=== PATIENT | female | born 1970 | race Caucasian/White ===

== ENCOUNTER 2020-10-26 22:18 | Emergency (ER) | payer SELFPAY ==
[2020-10-26 22:28] VITALS: BP 154/87; PULSE 102; RESP 16; TEMP 36.2; O2SAT 98; BMI 28.7
--- NOTE | 2020-10-26 23:00 | ED.URI ---
HPI - URI/Sore Throat General Chief Complaint: Upper Respiratory Symptoms Stated Complaint: COUGH Time Seen by Provider: 10/26/20 22:55 Source: patient Mode of arrival: ambulatory Limitations: no limitations History of Present Illness HPI Narrative: Patient comes emergency room complaining frequent asthma exacerbations. Patient states a few days ago she ran out of her albuterol nebulization treatments. Patient has been using her inhaler beclamethasone. Patient states she has been having a dry cough for about a week. Patient states she gets weekly COVID tests, they have been negative. Patient requesting a prescription for Tessalon Perles Related Data Previous Rx's Medication Instructions Recorded albuterol sulfate 5 mg INHALATION Q6H PRN #30 ea 10/26/20 benzonatate [Tessalon Perles] 100 mg PO TID PRN #14 cap 10/26/20 prednisone 50 mg PO DAILY #4 tab 10/26/20 Allergies Allergy/AdvReac Type Severity Reaction Status Date / Time No Known Allergies Allergy Verified 10/26/20 22:27 Review of Systems Review of Systems: Constitutional : No Weight loss, No Fever, No Chills, No Night Sweats, No Fatigue, No Malaise ENT/Mouth : No Hearing loss, No Ear Pain, No Nasal Congestion, No Sinus Pain, No Hoarseness, No sore throat, No Rhinorrhea, No Swallowing Difficulty Eyes: No Eye Pain, No Swelling, No Redness, No Foreign Body, No Discharge, No Vision Changes Cardiovascular : No Chest Pain, No SOB, No Dyspnea on Exertion, No Orthopnea, No Edema, No Palpitations Respiratory : Complaining of dry cough, complaining of wheezing occasionally but more frequently than usual, No Smoke Exposure, No Dyspnea Gastrointestinal : No Nausea, No Vomiting, No Diarrhea, No Constipation, No abdominal Pain, No Hematochezia, No Melena Genitourinary : no irregular bleeding, No Dysuria, No Urinary Frequency, No Hematuria, No Urinary Incontinence, No Urgency, No Flank Pain, No Urinary Flow Changes, No Hesitancy Musculoskeletal : No joint pain, No Myalgias, No Joint Swelling Skin : No Skin Lesions, No rash Neuro : No Weakness, No Numbness, No Paresthesias, No Loss of Consciousness, No Dizziness, No Headache Psych : No Anxiety/Panic, No Depression, No SI/HI/AH/VH, No Social Issues, Heme/Lymph: No Bruising, No Bleeding,No Lymphadenopathy Endocrine : No Polyuria, No Polydipsia, No Temperature Intolerance PMF Past Medical History Medical History Asthma Hypothyroid Physical Exam Vital Signs: Vital Signs: Last Vital Signs Temp 97.1 F 10/26/20 22:28 Pulse 102 H 10/26/20 22:28 Resp 16 10/26/20 22:28 BP 154/87 H 10/26/20 22:28 Pulse Ox 98 10/26/20 22:28 Body Mass Index 28.7 Appearance: Alert. Oriented X3. No acute distress. Eyes: Pupils equal, round and reactive to light. ENT: Pharynx normal. Neck: Normal inspection. Neck supple. No lymph nodes noted. No crepitus CVS: Normal heart rate and rhythm. Pulses normal. Normal S1 and S2 Respiratory: No respiratory distress. Breath sounds normal. No Wheezing. No rales Abdomen: Soft and nontender. No rigidity. No distention. good BS x4 Skin: Skin warm and dry. Normal skin color. Normal skin turgor. Extremities: No lower extremity edema. No lower extremity edema. No Lacerations. No Rash Neuro: Oriented X 3. No motor deficit. No sensory deficit. Moving all extermities. No slurred speech. Course Course Course Narrative: At this time, patient is not wheezing, states she used her Ventolin inhaler prior to arrival. Patient has no respiratory distress. Patient given 1 dose of prednisone and Tessalon Perles, prescription sent to her pharmacy. Discharge Plan Discharge Clinical Impression: Asthma Qualifiers: Asthma severity: unspecified severity Asthma persistence: unspecified Asthma complication type: unspecified Qualified Code(s): J45.909 - Unspecified asthma, uncomplicated Patient Disposition: Home, Self-Care Instructions: Asthma (ED) Additional Instructions: Please follow-up with your primary care physician tomorrow. If you have any worsening or new symptoms, please return to the emergency room or call 911 Prescriptions: New benzonatate [Tessalon Perles] 100 mg capsule 100 mg PO TID PRN (Reason: cough) Qty: 14 RF: 0 prednisone 50 mg tablet 50 mg PO DAILY Qty: 4 RF: 0 albuterol sulfate 2.5 mg/0.5 mL solution for nebulization 5 mg inhalation Q6H PRN (Reason: shortness of breath or wheezing) Qty: 30 RF: 0
[2020-10-26] MEDS: predniSONE 20 MG TABLET 60 MG PO (23:18)
[2020-10-26] MEDS: Benzonatate 100 MG CAPSULE PO (23:18)
== END 2020-10-26 23:33 | disposition home or self-care (01) ==
LOC: HO.ED 23:11
PROVIDERS: Emergency Provider Emergency Medicine
DX: J45.909 Unspecified asthma, uncomplicated (principal); Z79.899 Other long term (current) drug therapy
CPT/HCPCS: 99283

== ENCOUNTER 2021-08-22 01:52 | Emergency (ER) | payer OTHER, SELFPAY ==
--- NOTE | ~2021-08-22 | XR_ITS ---
EXAMINATION: XR CHEST CLINICAL INFORMATION: Cough COMPARISON: 10/07/2019 TECHNIQUE: Frontal view of the chest was obtained. FINDINGS: The lungs are well expanded. There is no focal consolidation, edema, or effusion. No pneumothorax. The cardiomediastinal silhouette is within normal limits. No acute osseous abnormality. XR/XR chest 1V IMPRESSION: Clear lungs.
[2021-08-22 01:59] VITALS: BP 166/99; PULSE 96; RESP 16; TEMP 36.6; O2SAT 98; BMI 29.7
[2021-08-22 02:17] LABS: COVID-19 Test Negative (Negative)
[2021-08-22 04:23] VITALS: BP 139/80; PULSE 73; RESP 16; TEMP 36.6; O2SAT 95
--- NOTE | 2021-08-22 05:23 | ED.ASTHMA ---
HPI - Asthma General Chief Complaint: Upper Respiratory Symptoms Stated Complaint: cough Time Seen by Provider: 08/22/21 05:15 Source: patient Mode of arrival: ambulatory History of Present Illness HPI Narrative: This is a 50-year-old female who has a history of asthma and presents with a dry cough for 3 days and stating that her nebulized treatment does not seem to be working and she typically experiences exacerbations around this time of the year. Otherwise, she denies any fever, chills, nausea, vomiting, abdominal pain or urinary pain/burning/frequency. Related Data Previous Rx's Medication Instructions Recorded albuterol sulfate 2.5 mg/0.5 mL 5 mg INHALATION Q6H PRN #30 ea 10/26/20 solution for nebulization benzonatate 100 mg capsule 100 mg PO TID PRN #14 cap 10/26/20 (Delmis Marshall) prednisone 50 mg tablet 50 mg PO DAILY #4 tab 10/26/20 prednisone 50 mg tablet 50 mg PO DAILY 4 Days #4 tab 08/22/21 Allergies Allergy/AdvReac Type Severity Reaction Status Date / Time No Known Allergies Allergy Verified 08/22/21 01:59 Review of Systems Review of Systems: Pertinent positives and negatives as stated in HPI 10 point review of systems is otherwise negative. PMFSH Past Medical History Source: nursing notes reviewed Medical History Asthma Hypothyroid Social History Social History Advance Directives: No Advance Directives Information Provided: No Patient : No Physical Exam Vital Signs: Vital Signs: Last Vital Signs Temp 98 F 08/22/21 04:23 Pulse 73 08/22/21 04:23 Resp 16 08/22/21 04:23 BP 139/80 08/22/21 04:23 Pulse Ox 95 08/22/21 04:23 BMI result Body Mass Index 29.7 VITAL SIGNS: Reviewed. GENERAL: Well developed, well nourished, in no acute distress. HEAD: Normocephalic/atraumatic EYES: PERRLA, EOMI EARS: Ext canals without abnormality, TMs non-bulging and non-erythematous NOSE: Nares patent bilateral OROPHARYNX: no oral lesions noted, posterior pharynx clear LUNGS: Mild decrease in breath sounds but otherwise normal with minimal expiratory wheeze and no associated tachypnea or increased work of breathing. SpO2<> CARDIOVASCULAR: Regular rate and rhythm without noted murmurs, no JVD or lower extremity edema. ABDOMEN: Soft, non-tender, non-distended with bowel sounds. NEUROLOGIC: Alert and oriented x 4. Course Course Course Narrative: 50-year-old female with history and clinical presentation consistent with mild asthma exacerbation. Review of COVID-19 testing demonstrates negativity and chest x-rays without acute findings. Patient received initial prednisone as well as albuterol treatment and on re-evaluation reports that she feels much improved. MDM - Asthma Lab Data Labs: Lab Results 08/22/21 Range/Units 01:57 COVID-19 (EVAN) Negative (Negative) COVID-19 Clin Com See Note Discharge Plan Discharge Clinical Impression: Asthma Patient Disposition: Home, Self-Care Instructions: Asthma (ED) Additional Instructions: Resume all home medications as prescribed. Follow-up with your primary care provider. Return to the ER for worsening symptoms. Prescriptions: New prednisone 50 mg tablet 50 mg PO DAILY 4 Days Qty: 4 0RF No Action benzonatate [Tessalon Perles] 100 mg capsule 100 mg PO TID PRN (Reason: cough) Qty: 14 0RF prednisone 50 mg tablet 50 mg PO DAILY Qty: 4 0RF albuterol sulfate 2.5 mg/0.5 mL solution for nebulization 5 mg inhalation Q6H PRN (Reason: shortness of breath or wheezing) Qty: 30 0RF
[2021-08-22] MEDS: predniSONE 10 MG TABLET 50 MG PO (05:29)
[2021-08-22] MEDS: Albuterol Sulfate (0.083%) 2.5 MG/3 ML VIAL.NEB 5 MG INHALE (05:30)
[2021-08-22 06:12] VITALS: BP 148/78; PULSE 109; RESP 19; O2SAT 96
== END 2021-08-22 06:17 | disposition home or self-care (01) ==
PROVIDERS: Emergency Provider Student in an Organized Health Care Education/Training Program
DX: J45.909 Unspecified asthma, uncomplicated (principal); Z20.822 Contact with and (suspected) exposure to COVID-19
CPT/HCPCS: 71045; 87635; 99284

== ENCOUNTER 2021-09-06 15:45 | Emergency (ER) | payer OTHER, SELFPAY ==
--- NOTE | ~2021-09-06 | XR_ITS ---
EXAMINATION: XR CHEST CLINICAL INFORMATION: Left-sided pleuritic chest pain. COMPARISON: Chest radiograph dated from 08/22/2021. TECHNIQUE: 2 views of the chest were obtained. FINDINGS: No significant abnormality is noted involving the heart, lungs, mediastinum, bony thorax or soft tissues. XR/XR chest 2V IMPRESSION: Unremarkable examination.
--- NOTE | ~2021-09-06 | CT_ITS ---
EXAMINATION: CT ANGIOGRAM OF THE CHEST WITH AND WITHOUT CONTRAST (CT PULMONARY ANGIOGRAM FOR PE) CLINICAL INFORMATION: Reason for Exam Left-sided pleuritic chest pain, elevated D-dimer COMPARISON: Chest radiograph 09/06/2021 TECHNIQUE: Prior to contrast administration, noncontrast localization images were obtained. Subsequently, multidetector volumetric imaging was performed from the thoracic inlet to below the diaphragms following the administration of 61 mL Omnipaque 350 intravenous contrast. No contrast reaction reported Sagittal, coronal, and MIP oblique sagittal reformatted images were obtained on the CT workstation, uploaded to PACS, and reviewed. This CT examination was performed using dose optimization techniques as appropriate, variously including the following: *Automated exposure control *Adjustment of mA and/or kV according to patient size (this includes techniques or standardized protocols for targeted exams where dose is matched to indication/reason for exam; i.e. extremities or head) *Use of iterative reconstruction technique Total exam dose-length product 261 mGy-cm FINDINGS: QUALITY OF STUDY/CONTRAST BOLUS: Satisfactory. Severe motion artifact is present limiting diagnosis especially at the lung bases PULMONARY ARTERIES: No central or large segmental pulmonary emboli. THORACIC AORTA: No aneurysm or dissection. Evaluation of the aortic root is significantly limited by motion artifact. LUNG: No focal consolidation, nodules or masses. PLEURA: No pleural effusion or pneumothorax. MEDIASTINUM: Normal heart size. No pericardial effusion. No hilar or mediastinal lymphadenopathy. No evidence of septal bowing or right heart strain. CHEST WALL/AXILLA: No axillary or internal mammary lymphadenopathy. OSSEOUS STRUCTURES: No acute or suspicious osseous abnormality. UPPER ABDOMEN: Unremarkable. No reflux of contrast into the hepatic veins to suggest elevated right heart pressures. CT/CT angio chest PE protocol IMPRESSION: Limited study but no central or large segmental emboli are seen VTE: negative
[2021-09-06 15:59] VITALS: BP 155/75; PULSE 90; RESP 18; TEMP 36.8; O2SAT 98; BMI 28.3
--- NOTE | 2021-09-06 16:33 | ECG_ITS ---
Test Reason : CHEST PAIN Blood Pressure : / mmHG Vent. Rate : 094 BPM Atrial Rate : 094 BPM P-R Int : 150 ms QRS Dur : 084 ms QT Int : 380 ms P-R-T Axes : 061 023 034 degrees QTc Int : 475 ms Normal sinus rhythm Normal ECG No previous ECGs available Referred By: Carlos Blanchard Electronically Signed By:CARLITOS LOREDO MD
[2021-09-06 16:51] LABS: MANUAL DIFF FLAG NO
[2021-09-06 17:01] LABS: Basophils Percent Auto 0.2 % (0-2); Eosinophils Absolute Auto 0.3 X10*3/uL (0.0-0.4); Eosinophils Percent Auto 4.7 % (0-4); Hematocrit 38.8 % (37.0-47.0); Imm Gran Abs Auto 0.02 X10*3/uL (0.00-0.03); Imm Gran Pct Auto 0.3 % (0.0-0.4); Lymphocytes Absolute Auto 2.2 X10*3/uL (1.2-4.9); Lymphocytes Percent Auto 34.9 % (20-40); Mean Corpuscular HGB Conc 33.5 g/dl (31.0-35.0); Mean Corpuscular Hemoglobin 30.2 pg (27.0-33.0); Mean Platelet Volume 8.9 fL (9.4-12.3); Monocytes Absolute Auto 0.4 X10*3/uL (0.1-1.2); Monocytes Percent Auto 7.1 % (2-11); Neutrophils Absolute Auto 3.3 x10*3/uL (2.0-8.3); Neutrophils Percent Auto 52.8 % (45-73); Platelet Count 326 X10*3/uL (160-400); Red Blood Count 4.31 X10*6/uL (4.20-5.50); Red Cell Distribution Width 13.5 % (11.0-16.0); White Blood Count 6.2 X10*3/uL (4.8-10.8)
[2021-09-06 17:05] LABS: D Dimer High Sensitivity 241 NG/ML
[2021-09-06 17:13] LABS: Alanine Aminotransferase 13 U/L (0-31); Albumin Level 4.1 g/dL (3.5-5.0); Alkaline Phosphatase 75 U/L (39-117); Anion Gap 10 (12-20); Aspartate Amino Transferase 14 U/L (5-31); Bilirubin Total 0.5 mg/dL (0.0-1.0); Blood Urea Nitrogen 14 mg/dL (9-16); Calcium 9.1 mg/dL (8.4-10.2); Carbon Dioxide 27 mmol/L (22-29); Chloride 105 mmol/L (96-108); Creatinine Clr Calc Pharmacy 75.6; Estimated Glomerular Filt Rate > 60; Glucose Random 90 mg/dL (60-115); Sodium 138 mmol/L (135-145); Total Protein 7.2 g/dL (6.5-8.0)
[2021-09-06 17:19] LABS: Troponin-I High Sensitivity < 3.5 ng/L (<3.5-17.0)
[2021-09-06] MEDS: Ketorolac Tromethamine 15 MG/ML VIAL IVPUSH (17:24)
--- NOTE | 2021-09-06 17:54 | ED.GENADULT ---
HPI - General Adult General Chief complaint: Back Pain/Injury Stated complaint: light sided back pain Time Seen by Provider: 09/06/21 16:32 Source: patient Mode of arrival: ambulatory Limitations: no limitations History of Present Illness HPI narrative: 50-year-old female who presents emergency department for evaluation left anterior and posterior chest pain. 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 She states that yesterday while she was cleaning she had gradual onset of left posterior and left anterior chest pain. She describes the pain Came on gradually and is astabbing pain which is been intermittent, 10/10 at its worst. The pain is worse with breathing worse and with movement. She states that she does feel short of breath and has dyspnea on exertion. she does not recount any specific injury. The patient states that she was sick 1-2 weeks prior with asthma. She was seen in the emergency department and started on prednisone, and inhaler and Tessalon Perles. She states that her doctor extended her prednisone course. She denied fever, chills, rhinorrhea. She states that she does have a sore throat each she describes it as a raspy sensation. Patient has a cough which is intermittent and nonproductive. She denied abdominal pain, frequency, urgency, dysuria. She denied myalgias arthralgias. MD complaint: Chest pain Onset (ago): day(s) (2) Location: chest ( anterior and posterior) Radiation: non-radiation Severity: severe Severity scale (1-10): 10 Quality: stabbing and sharp Pain Consistency: intermittent Relieving factors: none Exacerbating factors: movement and other ( breathing) Associated symptoms: cough and other ( rhinorrhea) Treatments prior to arrival: none Related Data Previous Rx's Medication Instructions Recorded albuterol sulfate 2.5 mg/0.5 mL 5 mg INHALATION Q6H PRN #30 ea 10/26/20 solution for nebulization benzonatate 100 mg capsule 100 mg PO TID PRN #14 cap 10/26/20 (Tessalon Perles) prednisone 50 mg tablet 50 mg PO DAILY #4 tab 10/26/20 prednisone 50 mg tablet 50 mg PO DAILY 4 Days #4 tab 08/22/21 Allergies Allergy/AdvReac Type Severity Reaction Status Date / Time No Known Allergies Allergy Verified 09/06/21 15:59 Review of Systems Review of Systems: Yes all other systems are reviewed and are negative PMFSH Past Medical History [facility] Narrative: Past medical history: Asthma, hypothyroidism , IUD. Past surgical history none. social history: She denies tobacco use. She denies alcohol use. She denies drug use. Medical History Asthma Hypothyroid Social History Social History Advance Directives: No Advance Directives Information Provided: No Physical Exam ED Vital Signs: Vital Signs - 24 hr 09/06/21 15:59 Temperature 98.2 F Pulse Rate 90 Respiratory Rate 18 Blood Pressure 155/75 H Pulse Oximetry 98 BMI result Body Mass Index 28.3 Const Other: Awake, alert, female patient, very pleasant and cooperative, she does appear to be in [id number] distress secondary to her left-sided chest or back pain. [facility] Head: Yes normal to inspection, Yes normocephalic and Yes atraumatic Ears: external ears normal General nose exam: Normal external nose present Face and sinus: Yes normal facial exam Mouth: Normal oral and palatal mucosa present Throat: Yes posterior oropharynx normal Eyes General: appearance normal, both eyes and all related structures Pupils: Equal, round and reactive pupils present Neck Neck: Yes normal visual inspection, Yes no lymphadenopathy, Yes trachea midline and Yes supple Chest Other: Tenderness with palpation of her left anterior and posterior chest Chest palpation & inspection: normal inspection of the chest Resp Effort & Inspection: normal respiratory effort and able to speak in complete sentences Auscultation: clear to auscultation bilaterally Cardio Rate: regular rate Rhythm: regular rhythm Heart sounds: S1 normal heart sound present, S2 normal heart sound present and no murmurs GI Inspection: Yes normal to inspection Palpation (GI): Soft to palpation, nontender and no guarding Auscultation: normal bowel sounds General: Yes no CVA tenderness Back/Spine/Pelvis Back: no CVA tenderness Skin General skin exam: no rashes or lesions noted Neuro Cranial nerves: Yes CN's II-XII intact bilaterally and Yes Equal, round and reactive pupils present Cognition (Neuro): normal cognition Motor exam (neuro): 5/5 motor strength present throughout Extrem Other: negative Homans sign bilaterally, no calf tenderness or tenderness palpation of her thigh, lower extremities appear to be symmetric in size. General: Yes normal to inspection Psych Appearance: grossly normal Speech and movement: Normal speech and movement present Affect: normal affect Attitude: cooperative Thought process: Normal thought process present Thought content: Normal thought content present Course Course Course Narrative: 50-year-old female who presents emergency department for evaluation of pleuritic left-sided anterior posterior chest pain, the pain came on gradually yesterday while she was at work as a change management lead but does not recount any specific injury. She has associated shortness of breath and dyspnea on exertion. Initial vital signs revealed an elevated blood pressure of 155/75, O2 saturation was 98% on room air, although vital signs were unremarkable. Physical examination did reveal anterior and posterior chest wall tenderness. Given her age, the patient is PERC positive. I did order a CBC, CMP, troponin, EKG, D-dimer, chest x-ray. Patient's pain was treated with Toradol 15 mg IV. 1800 : Laboratory evaluation: CBC, CMP were normal. elevated D-dimer 241, troponin below detectable limits. Twelve EKG unremarkable. Chest x-ray unremarkable. Given her pleuritic chest pain, her age, and elevated D-dimer, I did order a CT pulmonary angiogram pulmonary embolism protocol. 1902: Patient's CT pulmonary angiogram was negative. Patient's presentation is consistent with costochondritis. I did discuss this with her. She was advised to take Tylenol and ibuprofen for pain. She was given a work note as well. She was discharged with printed and verbal instructions. Medical Decision Making Lab Data Lab results reviewed: Yes I reviewed the patient's lab results. Result diagrams: 09/06/21 16:42 09/06/21 16:42 Labs: Lab Results 09/06/21 09/06/21 09/06/21 Range/Units 16:42 16:42 16:42 WBC 6.2 (4.8-10.8) X10*3/uL RBC 4.31 (4.20-5.50) X10*6/uL Hgb 13.0 (12.0-16.0) g/dl Hct 38.8 (37.0-47.0) % MCV 90.0 (80.0-98.0) fL MCH 30.2 (27.0-33.0) pg MCHC 33.5 (31.0-35.0) g/dl RDW 13.5 (11.0-16.0) % Plt Count 326 (160-400) X10*3/uL MPV 8.9 L (9.4-12.3) fL Immature Gran % (Auto) 0.3 (0.0-0.4) % Neut % (Auto) 52.8 (45-73) % Lymph % (Auto) 34.9 (20-40) % Walton % (Auto) 7.1 (2-11) % Eos % (Auto) 4.7 H (0-4) % Baso % (Auto) 0.2 (0-2) % Lymph # (Auto) 2.2 (1.2-4.9) X10*3/uL Walton # (Auto) 0.4 (0.1-1.2) X10*3/uL Eos # (Auto) 0.3 (0.0-0.4) X10*3/uL Baso # (Auto) 0.0 (0.0-0.2) X10*3/uL Abs Immat Gran (auto) 0.02 (0.00-0.03) X10*3/uL Absolute Neuts (auto) 3.3 (2.0-8.3) x10*3/uL Absolute Nucleated RBC 0.000 (0.0-0.012) X10*3/uL Nucleated RBC % (auto) 0.0 (0.0-0.2) /100WBC D-Dimer High Sensitivty 241 NG/ML Sodium 138 (135-145) mmol/L Potassium 4.0 (3.3-5.1) mmol/L Chloride 105 (96-108) mmol/L Carbon Dioxide 27 (22-29) mmol/L Anion Gap 10 L (12-20) BUN 14 (9-16) mg/dL Creatinine 0.85 (0.5-1.4) mg/dL Estim Creat Clear Calc 75.6 Estimated GFR > 60 Random Glucose 90 (60-115) mg/dL Calcium 9.1 (8.4-10.2) mg/dL Total Bilirubin 0.5 (0.0-1.0) mg/dL AST 14 (5-31) U/L ALT 13 (0-31) U/L Alkaline Phosphatase 75 (39-117) U/L Troponin I High Sens (<3.5-17.0) ng/L Total Protein 7.2 (6.5-8.0) g/dL Albumin 4.1 (3.5-5.0) g/dL 09/06/21 Range/Units 16:42 WBC (4.8-10.8) X10*3/uL RBC (4.20-5.50) X10*6/uL Hgb (12.0-16.0) g/dl Hct (37.0-47.0) % MCV (80.0-98.0) fL MCH (27.0-33.0) pg MCHC (31.0-35.0) g/dl RDW (11.0-16.0) % Plt Count (160-400) X10*3/uL MPV (9.4-12.3) fL Immature Gran % (Auto) (0.0-0.4) % Neut % (Auto) (45-73) % Lymph % (Auto) (20-40) % Walton % (Auto) (2-11) % Eos % (Auto) (0-4) % Baso % (Auto) (0-2) % Lymph # (Auto) (1.2-4.9) X10*3/uL Walton # (Auto) (0.1-1.2) X10*3/uL Eos # (Auto) (0.0-0.4) X10*3/uL Baso # (Auto) (0.0-0.2) X10*3/uL Abs Immat Gran (auto) (0.00-0.03) X10*3/uL Absolute Neuts (auto) (2.0-8.3) x10*3/uL Absolute Nucleated RBC (0.0-0.012) X10*3/uL Nucleated RBC % (auto) (0.0-0.2) /100WBC D-Dimer High Sensitivty NG/ML Sodium (135-145) mmol/L Potassium (3.3-5.1) mmol/L Chloride (96-108) mmol/L Carbon Dioxide (22-29) mmol/L Anion Gap (12-20) BUN (9-16) mg/dL Creatinine (0.5-1.4) mg/dL Estim Creat Clear Calc Estimated GFR Random Glucose (60-115) mg/dL Calcium (8.4-10.2) mg/dL Total Bilirubin (0.0-1.0) mg/dL AST (5-31) U/L ALT (0-31) U/L Alkaline Phosphatase (39-117) U/L Troponin I High Sens < 3.5 (<3.5-17.0) ng/L Total Protein (6.5-8.0) g/dL Albumin (3.5-5.0) g/dL ECG Data Attestation: I personally reviewed and interpreted this ECG as follows: Interpretation: 1634: Normal sinus rhythm with a rate of 94, normal [place] interval QRS duration and QTC interval, no ST segment elevation, no ST segment depression, no PACs, no PVCs, no T-wave abnormalities. This is a normal EKG. Discharge Plan Discharge Clinical Impression: Acute costochondritis Patient Disposition: Home, Self-Care Instructions: Costochondritis (ED) Additional Instructions: Your blood work was unremarkable except for a slightly elevated D-dimer of 240. Your chest x-ray was normal. Your CT pulmonary angiogram was normal. There is no evidence of blood clots in your lungs causing your pain, this is very reassuring. Your symptoms are caused by inflammation of your chest joints (costochondritis). Take ibuprofen 200 mg pills, 3 pills every 6 hours as needed for pain. Take Tylenol (acetaminophen) 500 mg pills, 2 pills every 4 to 6 hours as needed for pain. Follow-up with your doctor in 2 days. Please return to the emergency department if your symptoms get worse or if you develop any symptoms that are concerning to you. Please see work note Prescriptions: No Action benzonatate [Tessalon Perles] 100 mg capsule 100 mg PO TID PRN (Reason: cough) Qty: 14 0RF prednisone 50 mg tablet 50 mg PO DAILY Qty: 4 0RF albuterol sulfate 2.5 mg/0.5 mL solution for nebulization 5 mg inhalation Q6H PRN (Reason: shortness of breath or wheezing) Qty: 30 0RF prednisone 50 mg tablet 50 mg PO DAILY 4 Days Qty: 4 0RF Stand Alone Forms: Work/School Release
[2021-09-06] MEDS: iohexoL 350 MG/ML 100 ML INFUS..BTL IV (18:20)
[2021-09-06 19:04] VITALS: BP 142/86; PULSE 79; RESP 16; TEMP 36.6; O2SAT 100
== END 2021-09-06 19:26 | disposition home or self-care (01) ==
PROVIDERS: Emergency Provider Emergency Medicine Emergency Medical Services
DX: M94.0 Chondrocostal junction syndrome [Tietze] (principal); J45.909 Unspecified asthma, uncomplicated
CPT/HCPCS: 36415; 71046; 71275; 80053; 84484; 85025; 85379; 93005; 96374; 99284; J1885; Q9967

== ENCOUNTER 2022-10-02 03:56 | Emergency (ER) | payer OTHER, SELFPAY ==
--- NOTE | ~2022-10-02 | US_ITS ---
EXAMINATION: US ABDOMEN LIMITED CLINICAL INFORMATION: Right upper quadrant pain. COMPARISON: None available. TECHNIQUE: Real-time imaging of the right upper quadrant abdominal viscera. FINDINGS: PANCREAS: Visualized portions unremarkable; tail obscured by interposed bowel gas. LIVER: Normal. The liver is normal in size. The liver contour is normal. There is diffuse increased liver parenchymal echogenicity, consistent with hepatic steatosis. No focal hepatic lesion. Focal fat sparing along the gallbladder fossa. There is no intrahepatic biliary duct dilatation seen. GALLBLADDER: Normal. The gallbladder is physiologically distended without evidence of stones, sludge, polyps, wall thickening or pericholecystic fluid. Sonographic Kelly sign is positive COMMON BILE DUCT: Normal in caliber measuring 0.2 cm in diameter. RIGHT KIDNEY: Normal. No hydronephrosis. No renal calculi or focal parenchymal lesions. The kidney measures 10.6 cm in maximum dimension. FREE FLUID: None. US/US abdomen limited IMPRESSION: * Hepatic steatosis. * No cholelithiasis. * A positive sonographic Kelly's sign is nonspecific in the absence of any imaging features of cholecystitis.
[2022-10-02 04:01] VITALS: BP 133/69; PULSE 130; RESP 16; TEMP 36.8; O2SAT 94; BMI 30.1
[2022-10-02 04:15] LABS: MANUAL DIFF FLAG NO
[2022-10-02 04:16] LABS: Basophils Percent Auto 0.1 % (0-2); Eosinophils Absolute Auto 0.2 X10*3/uL (0.0-0.4); Eosinophils Percent Auto 1.8 % (0-4); Hematocrit 41.2 % (37.0-47.0); Hemoglobin 13.8 g/dl (12.0-16.0); Imm Gran Abs Auto 0.03 X10*3/uL (0.00-0.03); Imm Gran Pct Auto 0.3 % (0.0-0.4); Lymphocytes Absolute Auto 0.8 X10*3/uL (1.2-4.9); Lymphocytes Percent Auto 7.1 % (20-40); Mean Corpuscular HGB Conc 33.5 g/dl (31.0-35.0); Mean Corpuscular Hemoglobin 29.2 pg (27.0-33.0); Mean Corpuscular Volume 87.1 fL (80.0-98.0); Monocytes Absolute Auto 0.3 X10*3/uL (0.1-1.2); Monocytes Percent Auto 2.9 % (2-11); Neutrophils Absolute Auto 9.6 x10*3/uL (2.0-8.3); Neutrophils Percent Auto 87.8 % (45-73); Platelet Count 339 X10*3/uL (160-400); Red Blood Count 4.73 X10*6/uL (4.20-5.50); White Blood Count 10.9 X10*3/uL (4.8-10.8)
[2022-10-02 04:47] LABS: Alanine Aminotransferase 18 U/L (0-31); Albumin Level 4.5 g/dL (3.5-5.0); Alkaline Phosphatase 110 U/L (39-117); Anion Gap 16 (12-20); Aspartate Amino Transferase 17 U/L (5-31); Bilirubin Direct 0.2 mg/dL (0.0-0.5); Bilirubin Total 0.8 mg/dL (0.0-1.0); Blood Urea Nitrogen 15 mg/dL (9-16); Calcium 9.5 mg/dL (8.4-10.2); Carbon Dioxide 26 mmol/L (22-29); Chloride 106 mmol/L (96-108); Creatinine Clr Calc Pharmacy 73.5; Estimated Glomerular Filt Rate > 60; Glucose Random 157 mg/dL (60-115); Lipase 30 U/L (8-78); Potassium 4.3 mmol/L (3.3-5.1); Sodium 144 mmol/L (135-145); Total Protein 7.4 g/dL (6.5-8.0)
--- NOTE | 2022-10-02 04:56 | ED.NAVMDI ---
HPI - Nausea/Vomiting/Diarrhea General Chief complaint: Nausea/Vomiting/Diarrhea Stated complaint: vomiting, stomach pain Time Seen by Provider: 10/02/22 04:56 Source: patient Mode of arrival: ambulatory Limitations: no limitations History of Present Illness HPI Narrative: Patient has significant past medical history been having nausea vomiting with upper abdominal pain since 23:00 and about 6 times no diarrhea no fever no chills no abdominal distention patient never had similar complaints in the past no fever or chills Related Data Previous Rx's Medication Instructions Recorded albuterol sulfate 2.5 mg/0.5 mL 5 mg inhalation Q6H PRN shortness 10/26/20 solution for nebulization of breath or wheezing #30 ea benzonatate 100 mg capsule 100 mg PO TID PRN cough #14 caps 10/26/20 (Delmis Marshall) prednisone 50 mg tablet 50 mg PO DAILY #4 tabs 10/26/20 prednisone 50 mg tablet 50 mg PO DAILY 4 days #4 tabs 08/22/21 ondansetron 4 mg disintegrating 4 mg PO Q6-8H PRN nausea and 10/02/22 tablet vomiting #10 tabs Allergies Allergy/AdvReac Type Severity Reaction Status Date / Time No Known Allergies Allergy Verified 10/02/22 04:01 Review of Systems Review of Systems: Yes all other systems are reviewed and are negative PMFSH Past Medical History Medical History Asthma Hypothyroid Social History Social History Smoked in Last 30 Days: No Use of substances other than those prescribed or required for medical reasons: No Advance Directives: No Advance Directives Information Provided: Yes Physical Exam Vital Signs: Vital Signs: Last Vital Signs Temp 97.2 F 10/02/22 06:15 Pulse 114 H 10/02/22 06:15 Resp 17 10/02/22 06:15 BP 120/70 10/02/22 06:15 Pulse Ox 95 10/02/22 06:15 O2 Del Method Room Air 10/02/22 04:01 BMI result Body Mass Index 30.1 Appearance: Alert. Oriented X3. No acute distress. Eyes: PERRLA, no pallor or icterus ENT: Pharynx normal. Oral Mucosa moist Neck: Normal inspection. Neck supple. CVS: Normal heart rate and rhythm. Pulses normal. Respiratory: No respiratory distress. Equal air entry bilateral, no wheezing/rales/rhonchi Abdomen: Soft , tender epigastric area and right upper quadrant with guarding no rebound tenderness Bowel sounds are present, no mass palpable, no CVA tenderness Skin: Skin warm and dry. Normal skin color. Normal skin turgor. Extremities: No lower extremity edema. No calf tenderness Neuro: Oriented X 3. No motor deficit. No sensory deficit.No cerebellar signs , cranial nerves II-XII intact Medications Administered Generic Name Dose Route Start Last Admin Trade Name Freq PRN Reason Stop Dose Admin Sodium Chloride 1,000 mls @ 999 mls/hr 10/02/22 06:18 10/02/22 06:21 Ns IV 10/02/22 07:18 999 mls/hr .Q1H1M ONE Administration Discontinued Medications Generic Name Dose Route Start Last Admin Trade Name Freq PRN Reason Stop Dose Admin Sodium Chloride 1,000 mls @ 999 mls/hr 10/02/22 05:04 10/02/22 06:21 Ns IV 10/02/22 06:04 Infused .Q1H1M ONE Infusion Morphine Sulfate 4 mg 10/02/22 05:04 10/02/22 05:13 Morphine Sulfate 4 Mg/Ml Cartridge IVPUSH 10/02/22 05:05 4 mg ONCE ONE Administration Protocol Ondansetron HCl 4 mg 10/02/22 05:04 10/02/22 05:13 Ondansetron Hcl 4 Mg/2 Ml Vial IVPUSH 10/02/22 05:05 4 mg ONCE ONE Administration Medical Decision Making Lab Data 10/02/22 04:06 10/02/22 04:06 Labs: Lab Results 10/02/22 10/02/22 10/02/22 Range/Units 04:06 04:06 06:21 WBC 10.9 H (4.8-10.8) X10*3/uL RBC 4.73 (4.20-5.50) X10*6/uL Hgb 13.8 (12.0-16.0) g/dl Hct 41.2 (37.0-47.0) % MCV 87.1 (80.0-98.0) fL MCH 29.2 (27.0-33.0) pg MCHC 33.5 (31.0-35.0) g/dl RDW 13.0 (11.0-16.0) % Plt Count 339 (160-400) X10*3/uL MPV 9.0 L (9.4-12.3) fL Immature Gran % (Auto) 0.3 (0.0-0.4) % Neut % (Auto) 87.8 H (45-73) % Lymph % (Auto) 7.1 L (20-40) % [place] % (Auto) 2.9 (2-11) % Eos % (Auto) 1.8 (0-4) % Baso % (Auto) 0.1 (0-2) % Lymph # (Auto) 0.8 L (1.2-4.9) X10*3/uL [place] # (Auto) 0.3 (0.1-1.2) X10*3/uL Eos # (Auto) 0.2 (0.0-0.4) X10*3/uL Baso # (Auto) 0.0 (0.0-0.2) X10*3/uL Abs Immat Gran (auto) 0.03 (0.00-0.03) X10*3/uL Absolute Neuts (auto) 9.6 H (2.0-8.3) x10*3/uL Absolute Nucleated RBC 0.000 (0.0-0.012) X10*3/uL Nucleated RBC % (auto) 0.0 (0.0-0.2) /100WBC Sodium 144 (135-145) mmol/L Potassium 4.3 (3.3-5.1) mmol/L Chloride 106 (96-108) mmol/L Carbon Dioxide 26 (22-29) mmol/L Anion Gap 16 (12-20) BUN 15 (9-16) mg/dL Creatinine 0.88 (0.5-1.4) mg/dL Estim Creat Clear Calc 73.5 Estimated GFR > 60 Random Glucose 157 H (60-115) mg/dL Calcium 9.5 (8.4-10.2) mg/dL Total Bilirubin 0.8 (0.0-1.0) mg/dL Direct Bilirubin 0.2 (0.0-0.5) mg/dL AST 17 (5-31) U/L ALT 18 (0-31) U/L Alkaline Phosphatase 110 (39-117) U/L Total Protein 7.4 (6.5-8.0) g/dL Albumin 4.5 (3.5-5.0) g/dL Lipase 30 (8-78) U/L Urine Color Yellow Urine Appearance Clear Urine pH 8.5 (5.0-9.0) Ur Specific [place] 1.015 (1.005-1.025) Urine Protein Trace (Neg-Trace) mg/dL Urine Glucose (UA) Negative (Negative) mg/dL Urine Ketones Negative (Negative) mg/dL Urine Blood Trace H (Negative) Urine Nitrite Negative (Negative) Ur Leukocyte Esterase Trace H (Negative) Urine RBC 6-10 H (0-2) /HPF Urine WBC 0-5 (0-5) /HPF Ur Squamous Epith Cells 0-2 (0-2) /HPF Urine Bacteria Trace (None Seen) Hyaline Casts 0-2 (0-2) /LPF Discharge Plan Discharge Clinical Impression: Gastroenteritis Patient Disposition: Home, Self-Care Instructions: Acute Nausea and Vomiting (ED) Additional Instructions: Drink plenty of fluids Nausea medication as prescribed Follow with PCP if not better Prescriptions: New ondansetron 4 mg tablet,disintegrating 4 mg PO Q6-8H PRN (Reason: nausea and vomiting) Qty: 10 0RF No Action benzonatate [Tessalon Perles] 100 mg capsule 100 mg PO TID PRN (Reason: cough) Qty: 14 0RF prednisone 50 mg tablet 50 mg PO DAILY Qty: 4 0RF albuterol sulfate 2.5 mg/0.5 mL solution for nebulization 5 mg inhalation Q6H PRN (Reason: shortness of breath or wheezing) Qty: 30 0RF prednisone 50 mg tablet 50 mg PO DAILY 4 Days Qty: 4 0RF
[2022-10-02] MEDS: 0.9 % Sodium Chloride 1,000 ML 999 ML IV ×2 (05:12→06:21)
[2022-10-02] MEDS: ondansetron HCL 4 MG/2 ML VIAL IVPUSH (05:13)
[2022-10-02] MEDS: Morphine Sulfate 4 MG/ML CARTRIDGE IVPUSH (05:13)
--- NOTE | 2022-10-02 05:15 | PC.NURSE ---
pt medicated for nausea and abd pain. Will continue to monitor.
[2022-10-02 05:49] VITALS: BP 124/83; PULSE 114; RESP 14; TEMP 37; O2SAT 97
--- NOTE | 2022-10-02 06:12 | PC.NURSE ---
ct scan, pt denies any pain.
[2022-10-02 06:15] VITALS: BP 120/70; PULSE 114; RESP 17; TEMP 36.2; O2SAT 95
--- NOTE | 2022-10-02 06:25 | PC.NURSE ---
provider aware of pt being tachycardia, second liter of fluids hung. Will continue to monitor.
[2022-10-02 06:26] LABS: Appearance Urine Clear; Color Urine Yellow; Glucose Urine UA Negative (Negative); Leukocyte Esterase Urine Trace (Negative); Nitrite Urine Negative (Negative); PH 8.5 (5.0-9.0); Specific Gravity - Urine 1.015 (1.005-1.025); UMIC TRIGGER UACC YES; Urine Blood Trace (Negative); Urine Ketones Negative (Negative); Urine Protein Trace mg/dL (Neg-Trace)
[2022-10-02 06:35] LABS: Bacteria Urine Trace (None Seen); Hyaline Casts Urine 0-2 /LPF (0-2); Squamous Epithelial Cell Urine 0-2 /HPF (0-2); WBC Urine 0-5 /HPF (0-5)
== END 2022-10-02 07:20 | disposition home or self-care (01) ==
PROVIDERS: Emergency Provider Internal Medicine
DX: K52.9 Noninfective gastroenteritis and colitis, unspecified (principal); R11.2 Nausea with vomiting, unspecified; R10.10 Upper abdominal pain, unspecified
CPT/HCPCS: 36415; 76705; 80053; 81001; 82248; 83690; 85025; 96361; 96374; 96375; 99284; 99285; J2270; J2405

== ENCOUNTER 2023-07-12 21:28 | Emergency (ER) | payer OTHER, SELFPAY ==
[2023-07-12 21:44] VITALS: BP 160/110; PULSE 104; RESP 18; TEMP 36.6; O2SAT 99; BMI 30.1
--- NOTE | 2023-07-12 22:36 | MHC.EDTECH ---
Patient brought into triage area,Covid,and Flu swabs collected and sent to lab.
[2023-07-12 22:58] LABS: COVID-19 Test Negative (Negative); IDNOW Serial# 6674DD1D
[2023-07-12 23:11] LABS: IDNOW Serial# 08D9AD1C; Influenza A Negative (Negative); Influenza B2 Negative (Negative)
--- NOTE | 2023-07-13 00:12 | ED.URI ---
HPI - URI/Sore Throat General Chief Complaint: Upper Respiratory Symptoms Stated Complaint: coughing/asthma/breathing diff Time Seen by Provider: 07/13/23 00:11 Source: patient Mode of arrival: ambulatory Limitations: no limitations History of Present Illness HPI Narrative: Patient with History of asthma been having more dry cough for last 1 week specially the nighttime using inhaler without much relief symptoms started after working at work using strong chemicals to clean. In the ER patient noticed to have dry cough no fever or chest pain Related Data Previous Rx's Medication Instructions Recorded albuterol sulfate 2.5 mg/0.5 mL 5 mg inhalation Q6H PRN shortness 10/26/20 solution for nebulization of breath or wheezing #30 ea benzonatate 100 mg capsule 100 mg PO TID PRN cough #14 caps 10/26/20 (Delmis Marshall) prednisone 50 mg tablet 50 mg PO DAILY #4 tabs 10/26/20 prednisone 50 mg tablet 50 mg PO DAILY 4 days #4 tabs 08/22/21 ondansetron 4 mg disintegrating 4 mg PO Q6-8H PRN nausea and 10/02/22 tablet vomiting #10 tabs albuterol sulfate 2.5 mg/3 mL 2.5 mg (3 mL) inhalation Q4-6H PRN 07/13/23 (0.083 %) solution for nebulization shortness of breath or wheezing #90 mL albuterol sulfate 90 mcg/actuation 2 puff inhalation Q4-6H PRN 07/13/23 aerosol inhaler (ProAir HFA) shortness of breath or wheezing #8.5 grams benzonatate 200 mg capsule 200 mg PO TID PRN cough #30 caps 07/13/23 prednisone 20 mg tablet 40 mg (2 x 20 mg) PO DAILY #10 tabs 07/13/23 Allergies Allergy/AdvReac Type Severity Reaction Status Date / Time No Known Allergies Allergy Verified 07/12/23 21:43 Review of Systems Review of Systems: Yes all other systems are reviewed and are negative PMFSH Past Medical History Onset Date is defined in the Problem List Problems that require an onset date and time if occurred within 24 hrs of arrival to the ED Aortic Dissection and Rupture; Neurologic impairment; Cardiopulmonary Arrest; Endotracheal Intubation; Insertion or Replacement of Mechanical Circulatory Assist Device Medical History Hypothyroid Asthma Social History Social History Advance Directives: No Advance Directives Information Provided: No Physical Exam Vital Signs: Vital Signs: Last Vital Signs Temp 97.8 F 07/12/23 21:44 Pulse 96 07/13/23 01:07 Resp 18 07/13/23 01:07 BP 148/60 H 07/13/23 01:07 Pulse Ox 99 07/13/23 01:07 O2 Del Method Room Air 07/13/23 01:07 BMI result Body Mass Index 30.1 Appearance: Alert. Oriented X3. No acute distress. Coughing frequently ENT: Pharynx normal. Oral Mucosa moist Neck: Normal inspection. Neck supple. CVS: Normal heart rate and rhythm. Pulses normal. Respiratory: No respiratory distress. Equal air entry bilateral, prolonged expiration Abdomen: Soft and nontender. Bowel sounds are present, Skin: Skin warm and dry. Normal skin color. Normal skin turgor. Neuro: Oriented X 3. Medications Administered Discontinued Medications Generic Name Dose Route Start Last Admin Trade Name Freq PRN Reason Stop Dose Admin Albuterol Sulfate 4 puff 07/13/23 00:30 07/13/23 01:00 Albuterol Sulfate 90 Mcg 8 Gm Inhaler INHALE 07/13/23 00:31 4 puff ONCE ONE Administration Benzonatate 200 mg 07/13/23 00:30 07/13/23 01:00 Benzonatate 100 Mg Capsule PO 07/13/23 00:31 200 mg ONCE ONE Administration Dexamethasone 10 mg 07/13/23 00:30 07/13/23 01:00 Dexamethasone 2 Mg Tablet PO 07/13/23 00:31 10 mg ONCE ONE Administration Medical Decision Making Medical Decision Making MDM Narrative: Patient has asthmatic bronchitis was given prednisone and inhaler Lab Data MDM Lab Attestation statement: I reviewed the patient's lab results. Labs: Lab Results 07/12/23 Range/Units 22:35 COVID-19 (EVAN) Negative (Negative) COVID-19 Clin Com See Note Influenza Type A (JANKI) Negative (Negative) Influenza Type B (JANKI) Negative (Negative) Influenza A & B Note See Note Discharge Plan Discharge Clinical Impression: Asthmatic bronchitis Patient Disposition: Home, Self-Care Instructions: Asthma (ED) Additional Instructions: Avoid strong chemicals exposure wear the mask Take medication as prescribed use nebulizer/inhaler as needed Follow with PCP if not better Prescriptions: New albuterol sulfate [ProAir HFA] 90 mcg/actuation HFA aerosol inhaler 2 puff inhalation Q4-6H PRN (Reason: shortness of breath or wheezing) Qty: 8.5 0RF albuterol sulfate 2.5 mg /3 mL (0.083 %) solution for nebulization 2.5 mg inhalation Q4-6H PRN (Reason: shortness of breath or wheezing) Qty: 90 0RF benzonatate 200 mg capsule 200 mg PO TID PRN (Reason: cough) Qty: 30 0RF prednisone 20 mg tablet 40 mg PO DAILY Qty: 10 0RF No Action benzonatate [Tessalon Perles] 100 mg capsule 100 mg PO TID PRN (Reason: cough) Qty: 14 0RF prednisone 50 mg tablet 50 mg PO DAILY Qty: 4 0RF albuterol sulfate 2.5 mg/0.5 mL solution for nebulization 5 mg inhalation Q6H PRN (Reason: shortness of breath or wheezing) Qty: 30 0RF prednisone 50 mg tablet 50 mg PO DAILY 4 Days Qty: 4 0RF ondansetron 4 mg tablet,disintegrating 4 mg PO Q6-8H PRN (Reason: nausea and vomiting) Qty: 10 0RF Interventions: ED Discharge Assessment Last Done: 07/13/23 01:08 Discharge Date/Time: 07/13/23 01:08
[2023-07-13] MEDS: Albuterol Sulfate 90 MCG 8 GM INHALER 4 PUFF INHALE (01:00)
[2023-07-13] MEDS: Benzonatate 100 MG CAPSULE 200 MG PO (01:00)
[2023-07-13] MEDS: dexAMETHasone 2 MG TABLET 10 MG PO (01:00)
[2023-07-13 01:07] VITALS: BP 148/60; PULSE 96; RESP 18; O2SAT 99
== END 2023-07-13 01:08 | disposition home or self-care (01) ==
PROVIDERS: Emergency Provider Internal Medicine
DX: J45.998 Other asthma (principal); Z11.52 Encounter for screening for COVID-19
CPT/HCPCS: 87502; 87635; 99284; J8540

== ENCOUNTER 2023-11-04 23:16 | Emergency (ER) | payer OTHER, SELFPAY ==
--- NOTE | ~2023-11-04 | XR_ITS ---
EXAMINATION: XR CHEST CLINICAL INFORMATION: Cough, congestion. COMPARISON: Chest radiograph 09/06/2021. CTA chest 09/06/2021. TECHNIQUE: 2 views of the chest were obtained. FINDINGS: Normal appearance of the cardiomediastinal silhouette. No focal airspace opacities, pleural effusion or pneumothorax. No pulmonary edema. Mild thoracic spondylosis. No acute osseous findings. Visualized upper abdomen is within normal limits. XR/XR chest 2V IMPRESSION: No acute cardiopulmonary findings.
[2023-11-04 23:37] VITALS: BP 153/87; PULSE 112; RESP 18; TEMP 36.6; O2SAT 97; BMI 30.6
[2023-11-05 01:12] LABS: Influenza A PCR NEGATIVE (Negative); Influenza B PCR NEGATIVE (Negative); Resp Syncy Virus RNA Qual PCR NEGATIVE (Negative); SARS COV2 PCR INHOUSE NEGATIVE (Negative)
[2023-11-05 04:00] VITALS: BP 138/84; PULSE 90; RESP 16; TEMP 36.6; O2SAT 97
--- NOTE | 2023-11-05 04:14 | ED_ITS ---
HPI - Asthma General Chief Complaint: Upper Respiratory Symptoms Stated Complaint: coughing Time Seen by Provider: 11/05/23 03:49 Source: patient Mode of arrival: ambulatory History of Present Illness HPI Narrative: 53-year-old female with history of asthma states she is she has had a dry cough that has now caused her to have left-sided chest wall pain. She otherwise denies any fevers or chills. Related Data Previous Rx's ?Medication ?Instructions ?Recorded albuterol sulfate 2.5 mg/0.5 mL 5 mg inhalation Q6H PRN shortness 10/26/20 solution for nebulization of breath or wheezing #30 ea benzonatate 100 mg capsule 100 mg PO TID PRN cough #14 caps 10/26/20 (Delmis Marshall) prednisone 50 mg tablet 50 mg PO DAILY #4 tabs 10/26/20 prednisone 50 mg tablet 50 mg PO DAILY 4 days #4 tabs 08/22/21 ondansetron 4 mg disintegrating 4 mg PO Q6-8H PRN nausea and 10/02/22 tablet vomiting #10 tabs albuterol sulfate 2.5 mg/3 mL 2.5 mg (3 mL) inhalation Q4-6H PRN 07/13/23 (0.083 %) solution for nebulization shortness of breath or wheezing #90 mL albuterol sulfate 90 mcg/actuation 2 puff inhalation Q4-6H PRN 07/13/23 aerosol inhaler (ProAir HFA) shortness of breath or wheezing #8.5 grams benzonatate 200 mg capsule 200 mg PO TID PRN cough #30 caps 07/13/23 prednisone 20 mg tablet 40 mg (2 x 20 mg) PO DAILY #10 tabs 07/13/23 prednisone 50 mg tablet 50 mg PO DAILY 4 days #4 tabs 11/05/23 Allergies Allergy/AdvReac Type Severity Reaction Status Date / Time No Known Allergies Allergy Verified 11/04/23 23:39 Review of Systems Review of Systems: Pertinent positives and negatives as stated in HPI COUNT INCLUDES THE [facility] Past Medical History Source: nursing notes reviewed Medical History Hypothyroid Asthma Social History Social History Advance Directives: No Advance Directives Information Provided: Yes Do you have a plan to hurt others: No Plan Physical Exam Vital Signs: Vital Signs: Last Vital Signs Temp 97.9 F 11/04/23 23:37 Pulse 112 H 11/04/23 23:37 Resp 18 11/04/23 23:37 BP 153/87 H 11/04/23 23:37 Pulse Ox 97 11/04/23 23:37 O2 Del Method Room Air 11/04/23 23:37 BMI result Body Mass Index 30.6 VITAL SIGNS: Reviewed. GENERAL: Well developed, well nourished, in no acute distress. HEAD: Normocephalic/atraumatic EYES: PERRLA, EOMI EARS: Ext canals without abnormality, TMs non-bulging and non-erythematous NOSE: Nares patent bilateral OROPHARYNX: no oral lesions noted, posterior pharynx clear and non-erythematous without noted tonsillar enlargement/erythema/exudates NECK: Supple, no adenopathy LUNGS: Normal breath sounds. No adventitious sounds or accessory muscle use. SpO2<97> CARDIOVASCULAR: Regular rate and rhythm without noted murmurs ABDOMEN: Soft, non-tender, non-distended with bowel sounds. MUSCULOSKELETAL: No tenderness, deformities, or effusions noted on gross inspection. EXTREMITIES: No cyanosis, clubbing or edema. SKIN: Inspection of the skin reveals no rashes NEUROLOGIC: Alert and oriented x 4. Strength and sensation to light touch were grossly intact x 4. Medical Decision Making Medical Decision Making [facility] Narrative: 53-year-old female with history and clinical presentation, DDX: Viral illness, asthma, pneumonia felt to be less likely. Reviewed all investigations and viral testing is negative for influenza/RSV/COVID-19 and chest x-ray does not demonstrate any infiltrate or venous congestion. My interpretation is this is a demonstration of cough variant asthma in addition to likely seasonal allergies and patient will be started on a short course of steroids. She has not hypoxic/tachypneic and did not require acute intervention for her asthma. She received initial dose of prednisone here in the emergency room. Differential Diagnosis Differential Diagnoses: The differential diagnosis associated with the presentation includes Please see the discussion above Admission/Observation Consideration of admission/observation: Escalation of care including admission/observation considered Please see the discussion above Lab Data [facility] Lab Attestation statement: I reviewed the patient's lab results. Please see the discussion above Labs: Lab Results 11/04/23 Range/Units 23:48 Influenza Type A (PCR) NEGATIVE (Negative) Influenza Type B (PCR) NEGATIVE (Negative) RSV RNA Qual (PCR) NEGATIVE (Negative) SARS-CoV-2 RNA (RT-PCR) NEGATIVE (Negative) Radiology Impression Discussion of test interpretation with radiology: I have reviewed the radiologist's reading. Radiologist Impression: Please see the discussions above External Record Review External record reviewed: Outpatient record and Prior outpatient labs Critical Care Time Critical Care Time Critical Care Time: Yes Total Critical Care Time: 30 Attestation: I personally attest to this time spent taking care of the patient. Discharge Plan Discharge Clinical Impression: Cough variant asthma Patient Disposition: Home, Self-Care Instructions: Asthma (ED) Additional Instructions: Follow-up with your primary care doctor Prescriptions: New prednisone 50 mg tablet 50 mg PO DAILY 4 Days Qty: 4 0RF No Action benzonatate [Tessalon Perles] 100 mg capsule 100 mg PO TID PRN (Reason: cough) Qty: 14 0RF prednisone 50 mg tablet 50 mg PO DAILY Qty: 4 0RF albuterol sulfate 2.5 mg/0.5 mL solution for nebulization 5 mg inhalation Q6H PRN (Reason: shortness of breath or wheezing) Qty: 30 0RF prednisone 50 mg tablet 50 mg PO DAILY 4 Days Qty: 4 0RF ondansetron 4 mg tablet,disintegrating 4 mg PO Q6-8H PRN (Reason: nausea and vomiting) Qty: 10 0RF albuterol sulfate [ProAir HFA] 90 mcg/actuation HFA aerosol inhaler 2 puff inhalation Q4-6H PRN (Reason: shortness of breath or wheezing) Qty: 8.5 0RF albuterol sulfate 2.5 mg /3 mL (0.083 %) solution for nebulization 2.5 mg inhalation Q4-6H PRN (Reason: shortness of breath or wheezing) Qty: 90 0RF benzonatate 200 mg capsule 200 mg PO TID PRN (Reason: cough) Qty: 30 0RF prednisone 20 mg tablet 40 mg PO DAILY Qty: 10 0RF Print Language: [place]
[2023-11-05] MEDS: predniSONE 10 MG TABLET 50 MG PO (04:42)
[2023-11-05 04:47] VITALS: BP 138/84; PULSE 90; RESP 16; TEMP 36.6; O2SAT 97
== END 2023-11-05 04:49 | disposition home or self-care (01) ==
PROVIDERS: Emergency Provider Student in an Organized Health Care Education/Training Program
DX: R05.9 Cough, unspecified (principal); J45.909 Unspecified asthma, uncomplicated; R07.89 Other chest pain; Z03.818 Encounter for observation for suspected exposure to other biological agents ruled out
CPT/HCPCS: 0241U; 71046; 99283; 99284

== ENCOUNTER 2023-11-26 22:08 | Emergency (ER) | payer OTHER, SELFPAY ==
[2023-11-26 22:13] VITALS: BP 131/77; PULSE 93; RESP 18; TEMP 36.3; O2SAT 98; BMI 30.6
[2023-11-26 22:43] LABS: IDNOW Serial# 9DB6401D; Influenza A Negative (Negative); Influenza B2 Negative (Negative)
[2023-11-26 22:44] LABS: IDNOW Serial# 58CA691E
[2023-11-26 22:45] LABS: COVID-19 Test Negative (Negative)
--- NOTE | 2023-11-26 23:15 | ED_ITS ---
HPI - General Adult General Chief complaint: Upper Respiratory Symptoms Stated complaint: persistent dry cough Time Seen by Provider: 11/26/23 23:07 Source: patient, RN notes reviewed and old records reviewed Mode of arrival: ambulatory Limitations: no limitations History of Present Illness ED Provider: Oleg SAMPSON narrative: 53-year-old female with past medical history significant for asthma presents for evaluation of a dry cough Patient endorses a dry cough for the last 2 days. She states that the symptoms have been on and off for several months. She has a history of allergies and asthma Denies any fevers, chills, shortness of breath pain She reports using 2 nebulizer treatments prior to coming to the hospital today Denies any recent travel. No other complaints or concerns at this time Related Data Previous Rx's ?Medication ?Instructions ?Recorded albuterol sulfate 2.5 mg/0.5 mL 5 mg inhalation Q6H PRN shortness 10/26/20 solution for nebulization of breath or wheezing #30 ea benzonatate 100 mg capsule 100 mg PO TID PRN cough #14 caps 10/26/20 (Delmis Marshall) prednisone 50 mg tablet 50 mg PO DAILY #4 tabs 10/26/20 prednisone 50 mg tablet 50 mg PO DAILY 4 days #4 tabs 08/22/21 ondansetron 4 mg disintegrating 4 mg PO Q6-8H PRN nausea and 10/02/22 tablet vomiting #10 tabs albuterol sulfate 2.5 mg/3 mL 2.5 mg (3 mL) inhalation Q4-6H PRN 07/13/23 (0.083 %) solution for nebulization shortness of breath or wheezing #90 mL albuterol sulfate 90 mcg/actuation 2 puff inhalation Q4-6H PRN 07/13/23 aerosol inhaler (ProAir HFA) shortness of breath or wheezing #8.5 grams benzonatate 200 mg capsule 200 mg PO TID PRN cough #30 caps 07/13/23 prednisone 20 mg tablet 40 mg (2 x 20 mg) PO DAILY #10 tabs 07/13/23 prednisone 50 mg tablet 50 mg PO DAILY 4 days #4 tabs 11/05/23 benzonatate 200 mg capsule 200 mg PO TID PRN cough #20 caps 11/26/23 prednisone 20 mg tablet 40 mg (2 x 20 mg) PO DAILY #10 tabs 11/26/23 Allergies Allergy/AdvReac Type Severity Reaction Status Date / Time No Known Allergies Allergy Verified 11/26/23 22:14 Review of Systems Constitutional: Constitutional: Denies body ache(s), Denies chills and Denies headache(s) Eyes: Eyes: Denies blurry vision ENT: Denies headache(s) and Denies sore throat Cardiovascular: Cardiovascular: Denies chest pain Respiratory: Respiratory: Denies chest congestion, Reports cough, Denies hemoptysis and Denies excessive phlegm production Gastrointestinal: Gastrointestinal: Denies abdominal pain, Denies nausea and Denies vomiting Musculoskeletal: Musculoskeletal: Denies back pain Integumentary/Breasts: Skin/Breast: Denies rash Neurologic: Denies headache(s) Psychiatric: Psychiatric: Denies anxiety and Denies suicidal ideation [facility] Past Medical History Medical History Hypothyroid Asthma Social History Social History Alcohol intake: never Advance Directives: No Advance Directives Information Provided: No Do you have a plan to hurt others: No Plan Physical Exam ED Vital Signs: Vital Signs - 24 hr 11/26/23 22:13 Temperature 97.3 F Pulse Rate 93 Respiratory Rate 18 Blood Pressure 131/77 Pulse Oximetry 98 Oxygen Delivery Method Room Air BMI result Body Mass Index 30.6 Const General: healthy appearing, comfortable, no acute distress, alert and awake Nutritional Appearance: well nourished Orientation/consciousness: patient oriented x3 HENMT Head: Yes normocephalic and Yes atraumatic Throat: Yes posterior oropharynx normal Eyes Eyelids: Yes eyelids normal Conjunctivae: conjunctivae normal Sclerae: sclerae normal Corneas: corneas normal Pupils: Equal, round and reactive pupils present EOM: EOMs intact bilaterally Neck Neck: Yes full ROM Resp Effort & Inspection: normal respiratory effort, able to speak in complete sentences, no audible wheezes and not labored Auscultation: clear to auscultation bilaterally GI Inspection: No distended Palpation (GI): Soft to palpation, not firm, nontender, no guarding and not rigid Skin General skin exam: elasticity normal Neuro General: patient oriented x3 Cranial nerves: Yes Equal, round and reactive pupils present and Yes Bilaterally intact EOM present Cognition (Neuro): normal cognition Extrem Other: Moving all extremities well without any obvious deformities Medications Administered Discontinued Medications Generic Name Dose Route Start Last Admin Trade Name Freq PRN Reason Stop Dose Admin Benzonatate 200 mg 11/26/23 23:14 11/26/23 23:22 Benzonatate 100 Mg Capsule PO 11/26/23 23:15 200 mg ONCE ONE Administration Prednisone 40 mg 11/26/23 23:14 11/26/23 23:23 Prednisone 20 Mg Tablet PO 11/26/23 23:15 40 mg ONCE ONE Administration Medical Decision Making Medical Decision Making MDM Narrative: Past medical history significant for asthma presents for evaluation of a dry cough. She endorses a history of allergies as well but she takes Zyrtec daily. She states that her symptoms tend to be worse when she is at work because chemicals are used for cleaning that trigger her asthma. Her lungs are currently clear to auscultation, she has no fevers or hypoxia to warrant an present x-ray at this time. She has not on any JENNIFER inhibitors. She has no risk factors for PE. Will discharge her with prednisone and benzonatate for asthma and cough Differential Diagnosis Differential Diagnoses: The differential diagnosis associated with the presentation includes Asthma exacerbation Bronchitis Pneumonia Allergies Allergic rhinitis Acute cough Lab Data Labs: Lab Results 11/26/23 Range/Units 22:22 COVID-19 (EVAN) Negative (Negative) COVID-19 Clin Com See Note Influenza Type A (JANKI) Negative (Negative) Influenza Type B (JANKI) Negative (Negative) Influenza A & B Note See Note Discharge Plan Discharge Clinical Impression: Asthma, Acute cough Patient Disposition: Home, Self-Care Instructions: Asthma (ED) Additional Instructions: You tested negative for the flu, COVID, RSV. Your lungs are clear to auscultation. Use benzonatate/Tessalon Perles as needed for cough. Take prednisone 40 mg daily for the next 5 days Follow-up with your primary doctor Prescriptions: New benzonatate 200 mg capsule 200 mg PO TID PRN (Reason: cough) Qty: 20 0RF prednisone 20 mg tablet 40 mg PO DAILY Qty: 10 0RF No Action benzonatate [Tessalon Perles] 100 mg capsule 100 mg PO TID PRN (Reason: cough) Qty: 14 0RF prednisone 50 mg tablet 50 mg PO DAILY Qty: 4 0RF albuterol sulfate 2.5 mg/0.5 mL solution for nebulization 5 mg inhalation Q6H PRN (Reason: shortness of breath or wheezing) Qty: 30 0RF prednisone 50 mg tablet 50 mg PO DAILY 4 Days Qty: 4 0RF ondansetron 4 mg tablet,disintegrating 4 mg PO Q6-8H PRN (Reason: nausea and vomiting) Qty: 10 0RF albuterol sulfate [ProAir HFA] 90 mcg/actuation HFA aerosol inhaler 2 puff inhalation Q4-6H PRN (Reason: shortness of breath or wheezing) Qty: 8.5 0RF albuterol sulfate 2.5 mg /3 mL (0.083 %) solution for nebulization 2.5 mg inhalation Q4-6H PRN (Reason: shortness of breath or wheezing) Qty: 90 0RF benzonatate 200 mg capsule 200 mg PO TID PRN (Reason: cough) Qty: 30 0RF prednisone 20 mg tablet 40 mg PO DAILY Qty: 10 0RF prednisone 50 mg tablet 50 mg PO DAILY 4 Days Qty: 4 0RF Print Language: Maltese
[2023-11-26] MEDS: Benzonatate 100 MG CAPSULE 200 MG PO (23:22)
[2023-11-26] MEDS: predniSONE 20 MG TABLET 40 MG PO (23:23)
[2023-11-26 23:29] VITALS: BP 143/93; PULSE 86; RESP 18; TEMP 36.6; O2SAT 96
== END 2023-11-26 23:33 | disposition home or self-care (01) ==
PROVIDERS: Emergency Provider Emergency Medicine
DX: J45.909 Unspecified asthma, uncomplicated (principal); R05.9 Cough, unspecified; Z79.899 Other long term (current) drug therapy; Z03.818 Encounter for observation for suspected exposure to other biological agents ruled out
CPT/HCPCS: 87502; 87635; 99283; 99284

== ENCOUNTER 2024-04-21 06:58 | Emergency (ER) | payer OTHER, SELFPAY ==
--- NOTE | ~2024-04-21 | XR_ITS ---
EXAMINATION: XR CHEST CLINICAL INFORMATION: Cough and shortness of breath COMPARISON: Prior chest radiograph 11/04/2023 TECHNIQUE: 2 views of the chest were obtained. FINDINGS: Lungs clear. No pleural effusions. Heart and pulmonary vessels normal. XR/XR chest 2V IMPRESSION: No active disease. Electronically signed by: Avery Block MD 04/21/2024 09:30 AM EDT
[2024-04-21 07:00] VITALS: BP 148/69; PULSE 107; RESP 20; TEMP 36.7; O2SAT 98; BMI 30.7
[2024-04-21 07:24] VITALS: O2SAT 98
--- NOTE | 2024-04-21 07:29 | ED_ITS ---
HPI - URI/Sore Throat General Chief Complaint: Upper Respiratory Symptoms Stated Complaint: resp issues Time Seen by Provider: 04/21/24 07:13 Source: patient Mode of arrival: ambulatory Limitations: no limitations History of Present Illness ED Provider: KIMBERLY WAGNER PA-C HPI Narrative: 53 year old female with pmhx significant for asthma, seasonal allergies, and hypothyroid presents to the ED today for evaluation of sore throat, bilateral ear pain, dry cough, myalgias times 24 hours. Denies sputum production. No drainage from the ears/ hearing changes. Admits her chest feels tight with coughing. Using her albuterol inhaler without relief. Last used this yesterday. States she works at [email or web address] with possible sick contacts. Denies fever/ chills, headache, dizziness, vision changes, dysphagia, wheezing, hemoptysis, SOB, chest pain, palpitations, N/V, abd pain. Denies recent travel or long car rides. Related Data Previous Rx's ?Medication ?Instructions ?Recorded albuterol sulfate 2.5 mg/0.5 mL 5 mg inhalation Q6H PRN shortness 10/26/20 solution for nebulization of breath or wheezing #30 ea benzonatate 100 mg capsule 100 mg PO TID PRN cough #14 caps 10/26/20 (Delmis Marshall) prednisone 50 mg tablet 50 mg PO DAILY #4 tabs 10/26/20 prednisone 50 mg tablet 50 mg PO DAILY 4 days #4 tabs 08/22/21 ondansetron 4 mg disintegrating 4 mg PO Q6-8H PRN nausea and 10/02/22 tablet vomiting #10 tabs albuterol sulfate 2.5 mg/3 mL 2.5 mg (3 mL) inhalation Q4-6H PRN 07/13/23 (0.083 %) solution for nebulization shortness of breath or wheezing #90 mL albuterol sulfate 90 mcg/actuation 2 puff inhalation Q4-6H PRN 07/13/23 aerosol inhaler (ProAir HFA) shortness of breath or wheezing #8.5 grams benzonatate 200 mg capsule 200 mg PO TID PRN cough #30 caps 07/13/23 prednisone 20 mg tablet 40 mg (2 x 20 mg) PO DAILY #10 tabs 07/13/23 prednisone 50 mg tablet 50 mg PO DAILY 4 days #4 tabs 11/05/23 benzonatate 200 mg capsule 200 mg PO TID PRN cough #20 caps 11/26/23 prednisone 20 mg tablet 40 mg (2 x 20 mg) PO DAILY #10 tabs 11/26/23 benzocaine 15 mg-menthol 2.6 mg 1 cesario mucous membrane Q2-4H PRN 04/21/24 lozenges (Cepacol Sore Throat sore throat #16 ea (benzocaine-menthol)) benzonatate 100 mg capsule 100 mg PO BID PRN cough #20 caps 04/21/24 prednisone 20 mg tablet 40 mg (2 x 20 mg) PO DAILY 4 days 04/21/24 #8 tabs Allergies Allergy/AdvReac Type Severity Reaction Status Date / Time chocolate Allergy Sneezing Verified 04/21/24 07:02 Review of Systems Review of Systems: Constitutional: No fever, chills, fatigue, night sweats, weight changes ENT/Mouth: No hearing loss, nasal congestion, sinus pain, rhinorrhea, +ear pain, +sore throat Eyes: No eye pain, swelling, redness, vision changes, discharge Cardio: No chest pain, palpitations, MERRITT, orthopnea, peripheral edema Pulm: No SOB, sputum, wheezing, dyspnea, hemoptysis, +cough GI: No nausea, vomiting, hematemesis, abdominal pain, diarrhea, constipation, hematochezia, melena : No irregular bleeding, dysuria, frequency, urgency, hesitancy, hematuria, flank pain, urinary flow changes, urinary incontinence or retention MSK: No back pain, neck pain, joint pain, +myalgias Skin: No lesions, rashes Neuro: No weakness, numbness, paresthesias, LOC, dizziness, headache Psych: No anxiety/panic, depression, SI/HI, AH/VH All other systems reviewed and are negative. [facility], [facility] Past Medical History Attestation statement: The following information was validated with the patient. Source: old records reviewed and nursing notes reviewed Medical History Hypothyroid Asthma Social History Social History Alcohol intake: never Advance Directives: No Advance Directives Information Provided: Yes Physical Exam Vital Signs: Vital Signs: Last Vital Signs Temp 98.1 F 04/21/24 07:00 Pulse 107 H 04/21/24 07:42 Resp 20 04/21/24 07:42 BP 148/69 H 04/21/24 07:00 Pulse Ox 98 04/21/24 07:24 O2 Del Method Room Air 04/21/24 07:24 BMI result Body Mass Index 30.7 Hypertensive and tachycardic General: Well appearing, in no acute distress. Skin: Warm, dry, intact. No rashes or lesions. Head: Normocephalic, atraumatic. EENT: Hearing is intact b/l. Conjunctiva clear. PERRLA. EOM intact. Moist mucous membranes.? Neck: Supple without LAD Cardiac: Chest wall symmetric. RRR. Lungs: Normal respiratory effort without accessory muscle use. Diminished breath sounds bilaterally. No rales or wheezes. Abdomen: Soft, non-tender, non-distended. No rebound tenderness or guarding. Positive BS x4. Back: No midline spinous or paraspinal tenderness. No step off deformity. Ext: Upper and lower extremities atraumatic, without tenderness, deformity, swelling or erythema. Full ROM throughout. Strength 5/5 throughout. No calf tenderness bilaterally. Neuro: AOx3. Normal speech. Ambulating with steady gait. Psych: Appropriate mood and affect. Responds appropriately to questions. Course Course Course Narrative: 0938 -- patient tested negative for COVID, flu, RSV, strep throat. Chest x-ray negative for pneumonia or effusion. I do not have suspicion for PE at this time. Patient treated with breathing treatment and steroid in the ED with improvement. Likely upper respiratory infection vs asthma exacerbation. Will send prednisone, Tessalon Perles and Cepacol throat lozenges to pharmacy for treatment. Patient has remained stable throughout ED visit today. Discussed worrisome signs and symptoms and when to return to the ED. All questions answered at this time. Patient is agreeable with disposition and stable for discharge. Medications Administered Discontinued Medications Generic Name Dose Route Start Last Admin Trade Name Freq PRN Reason Stop Dose Admin Albuterol/Ipratropium 3 ml 04/21/24 07:41 04/21/24 07:44 Albuterol/Iprat 2.5/0.5mg 3 Ml Ampul.Neb INHALE 04/21/24 07:42 3 ml ONCE ONE Administration Methylprednisolone Sodium Succinate 60 mg 04/21/24 07:34 04/21/24 07:56 Methylprednisolone Sod Succ 125 Mg/2 Ml Vial IM 04/21/24 07:35 60 mg ONCE ONE Administration Medical Decision Making Medical Decision Making [facility] Narrative: 53 year old female with pmhx significant for asthma, seasonal allergies, and hypothyroid presents to the ED today for evaluation of sore throat, bilateral ear pain, dry cough, myalgias times 24 hours. Patient tachycardic likely secondary to breathing treatment. Afebrile. Not hypoxic. She is nontoxic- appearing and in no acute distress. On exam, no increased effort of breathing. No tripoding. No signs of respiratory distress. Lungs with diminished breath sounds bilaterally, no wheezes or rhonchi. Skin w/d/i. No JVD, peripheral edema or calf tenderness bilaterally. Differential diagnosis includes viral syndrome, asthma exacerbation, bronchitis, pneumonia. Unlikely PE, pleural effusion, pneumothorax. Plan for viral and strep swab, chest x-ray, ED bronch protocol, Solu-Medrol, re- evaluation. Differential Diagnosis Differential Diagnoses: The differential diagnosis associated with the presenta tion includes As above Admission/Observation Not indicated Lab Data [facility] Lab Attestation statement: I reviewed the patient's lab results. As above Labs: Lab Results 04/21/24 Range/Units 07:12 Influenza Type A (PCR) NEGATIVE (Negative) Influenza Type B (PCR) NEGATIVE (Negative) RSV RNA Qual (PCR) NEGATIVE (Negative) SARS-CoV-2 RNA (RT-PCR) NEGATIVE (Negative) S. pyogenes GrpA JANKI Negative (Negative) Independent Interpretation I performed an independent interpretation of an: Plain X-Ray Interpretation: Chest x-ray without focal consolidation or infiltrate, agree with radiologist's interpretation. Radiology Impression Discussion of test interpretation with radiology: I have reviewed the radiologist's reading. Radiologist Impression: EXAMINATION: XR CHEST CLINICAL INFORMATION: Cough and shortness of breath COMPARISON: Prior chest radiograph 11/04/2023 TECHNIQUE: 2 views of the chest were obtained. FINDINGS: Lungs clear. No pleural effusions. Heart and pulmonary vessels normal. XR/XR chest 2V IMPRESSION: No active disease. Electronically signed by: Avery Block MD 04/21/2024 09:30 AM EDT Independent Historian Clinical information obtained from an independent historian. History obtained from or confirmed by: Spouse External Record Review External record reviewed: Inpatient record Prescription Management I considered prescription management with: Other (Prednisone, Tessalon Perles, Cepacol throat lozenges) Chronic Conditions Patient?s care impacted by: Other (asthma) Social Determinants Patient?s care significantly limited by Social Determinants of Health including: Other Social Determinant of Health Critical Care Time Critical Care Time Critical Care Time: No Discharge Plan Discharge Clinical Impression: Upper respiratory infection, viral Patient Disposition: Home, Self-Care Instructions: Viral Syndrome (ED) Additional Instructions: You tested negative for strep throat, flu, COVID, RSV. Your chest x-ray was normal. You likely have a viral upper respiratory infection that does not require antibiotic treatment. You were treated with a steroid and breathing treatment in the ED today. Tessalon Perles have been sent to your pharmacy for you to take as needed for cough. Prednisone as a steroid that has been sent to your pharmacy to help with breathi ng. You received a dose of this in the ED today. Start this tomorrow. Alter ibuprofen and Tylenol for fevers and body aches. Cepacol throat lozenges have been sent to your pharmacy for you to take as needed for sore throat. Follow-up with your PCP. If symptoms persist or worsen please return to the emergency department. The case of an emergency call 911. Prescriptions: New benzonatate 100 mg capsule 100 mg PO BID PRN (Reason: cough) Qty: 20 0RF Cepacol Sore Throat (carolina-men) 15-2.6 mg lozenge 1 cesario mucous membrane Q2-4H PRN (Reason: sore throat) Qty: 16 0RF prednisone 20 mg tablet 40 mg PO DAILY 4 Days Qty: 8 0RF No Action benzonatate [Tessalon Perles] 100 mg capsule 100 mg PO TID PRN (Reason: cough) Qty: 14 0RF prednisone 50 mg tablet 50 mg PO DAILY Qty: 4 0RF albuterol sulfate 2.5 mg/0.5 mL solution for nebulization 5 mg inhalation Q6H PRN (Reason: shortness of breath or wheezing) Qty: 30 0RF prednisone 50 mg tablet 50 mg PO DAILY 4 Days Qty: 4 0RF ondansetron 4 mg tablet,disintegrating 4 mg PO Q6-8H PRN (Reason: nausea and vomiting) Qty: 10 0RF albuterol sulfate [ProAir HFA] 90 mcg/actuation HFA aerosol inhaler 2 puff inhalation Q4-6H PRN (Reason: shortness of breath or wheezing) Qty: 8.5 0RF albuterol sulfate 2.5 mg /3 mL (0.083 %) solution for nebulization 2.5 mg inhalation Q4-6H PRN (Reason: shortness of breath or wheezing) Qty: 90 0RF benzonatate 200 mg capsule 200 mg PO TID PRN (Reason: cough) Qty: 30 0RF prednisone 20 mg tablet 40 mg PO DAILY Qty: 10 0RF prednisone 50 mg tablet 50 mg PO DAILY 4 Days Qty: 4 0RF benzonatate 200 mg capsule 200 mg PO TID PRN (Reason: cough) Qty: 20 0RF prednisone 20 mg tablet 40 mg PO DAILY Qty: 10 0RF Stand Alone Forms: Work/School Release Print Language: Malian
[2024-04-21 07:41] LABS: IDNOW Serial# 08D9AD1C; Strep A Nucleic Acid Negative (Negative)
[2024-04-21 07:42] VITALS: PULSE 107; RESP 20; O2SAT 96
[2024-04-21] MEDS: Albuterol/Iprat 2.5/0.5MG 3 ML AMPUL.NEB INHALE (07:44)
[2024-04-21] MEDS: methylPREDNISolone Sod Succ 125 MG/2 ML VIAL 60 MG IM (07:56)
[2024-04-21 08:00] LABS: Influenza A PCR NEGATIVE (Negative); Influenza B PCR NEGATIVE (Negative); Resp Syncy Virus RNA Qual PCR NEGATIVE (Negative); SARS COV2 PCR INHOUSE NEGATIVE (Negative)
[2024-04-21 10:00] VITALS: BP 145/84; PULSE 107; RESP 20; TEMP 37; O2SAT 97
== END 2024-04-21 10:02 | disposition home or self-care (01) ==
PROVIDERS: Emergency Provider Emergency Medicine
DX: J06.9 Acute upper respiratory infection, unspecified (principal); J02.9 Acute pharyngitis, unspecified; R05.9 Cough, unspecified; R06.02 Shortness of breath; Z03.818 Encounter for observation for suspected exposure to other biological agents ruled out
CPT/HCPCS: 0241U; 71046; 87651; 94640; 94664; 96372; 99284; J2919

== ENCOUNTER 2024-07-15 19:24 | Emergency (ER) | payer OTHER, SELFPAY ==
--- NOTE | ~2024-07-15 | XR_ITS ---
CLINICAL HISTORY: SOB Chest Radiographs, 2 views Comparison: 04/21/24 Findings: No cardiomegaly. Normal mediastinal contours. No pneumothorax. No opacity. No pleural effusion. Normal upper abdomen. No acute fracture. Impression: No acute findings. This document has been electronically signed by: Glo Deluca MD on 07/15/2024 22:10:32
[2024-07-15 21:28] VITALS: BP 149/88; PULSE 106; RESP 16; TEMP 36.7; O2SAT 98; BMI 31.1
--- NOTE | 2024-07-15 21:29 | ED.URI ---
HPI - URI/Sore Throat General Chief Complaint: Upper Respiratory Symptoms Stated Complaint: dry cough/asthma Related Data Previous Rx's ?Medication ?Instructions ?Recorded albuterol sulfate 2.5 mg/0.5 mL 5 mg inhalation Q6H PRN shortness 10/26/20 solution for nebulization of breath or wheezing #30 ea benzonatate 100 mg capsule 100 mg PO TID PRN cough #14 caps 10/26/20 (Delmis Marshall) prednisone 50 mg tablet 50 mg PO DAILY #4 tabs 10/26/20 prednisone 50 mg tablet 50 mg PO DAILY 4 days #4 tabs 08/22/21 ondansetron 4 mg disintegrating 4 mg PO Q6-8H PRN nausea and 10/02/22 tablet vomiting #10 tabs albuterol sulfate 2.5 mg/3 mL 2.5 mg (3 mL) inhalation Q4-6H PRN 07/13/23 (0.083 %) solution for nebulization shortness of breath or wheezing #90 mL albuterol sulfate 90 mcg/actuation 2 puff inhalation Q4-6H PRN 07/13/23 aerosol inhaler (ProAir HFA) shortness of breath or wheezing #8.5 grams benzonatate 200 mg capsule 200 mg PO TID PRN cough #30 caps 07/13/23 prednisone 20 mg tablet 40 mg (2 x 20 mg) PO DAILY #10 tabs 07/13/23 prednisone 50 mg tablet 50 mg PO DAILY 4 days #4 tabs 11/05/23 benzonatate 200 mg capsule 200 mg PO TID PRN cough #20 caps 11/26/23 prednisone 20 mg tablet 40 mg (2 x 20 mg) PO DAILY #10 tabs 11/26/23 benzocaine 15 mg-menthol 2.6 mg 1 cesario mucous membrane Q2-4H PRN 04/21/24 lozenges (Cepacol Sore Throat sore throat #16 ea (benzocaine-menthol)) benzonatate 100 mg capsule 100 mg PO BID PRN cough #20 caps 04/21/24 prednisone 20 mg tablet 40 mg (2 x 20 mg) PO DAILY 4 days 04/21/24 #8 tabs Allergies Allergy/AdvReac Type Severity Reaction Status Date / Time chocolate Allergy Sneezing Verified 07/15/24 21:33 [facility] Past Medical History Medical History Hypothyroid Asthma Social History Social History Alcohol intake: never Advance Directives: No Advance Directives Information Provided: No Do you have a plan to hurt others: No Plan Physical Exam Vital Signs: Vital Signs: Last Vital Signs Temp 98.0 F 07/15/24 21:28 Pulse 106 H 07/15/24 21:28 Resp 16 07/15/24 21:28 BP 149/88 H 07/15/24 21:28 Pulse Ox 98 07/15/24 21:28 O2 Del Method Room Air 07/15/24 21:28 BMI result Body Mass Index 31.1 Course Course Course Narrative: This is an RME: Additional HPI, ROS, PE not included below will be deferred to primary provider. RME assessment and note performed by: Miri Davis PA-C This is a 53-year-old female who presents emergency department with shortness of breath and cough. Reports that she developed an asthma attack earlier, use updraft, feeling better, continues to have chest tightness. And dry cough. No fevers or chills. Plan: Viral swabs, CXR, further ER eval needed Reevaluation(s) Reevaluation #1: Patient left without completing treatment. Medical Decision Making Lab Data Labs: Lab Results 07/15/24 Range/Units 21:38 Influenza Type A (PCR) NEGATIVE (Negative) Influenza Type B (PCR) NEGATIVE (Negative) RSV RNA Qual (PCR) NEGATIVE (Negative) SARS-CoV-2 RNA (RT-PCR) NEGATIVE (Negative) Discharge Plan Discharge Clinical Impression: Cough Patient Disposition: Left W/O Completing Treatment Prescriptions: No Action benzonatate [Tessalon Perles] 100 mg capsule 100 mg PO TID PRN (Reason: cough) Qty: 14 0RF prednisone 50 mg tablet 50 mg PO DAILY Qty: 4 0RF albuterol sulfate 2.5 mg/0.5 mL solution for nebulization 5 mg inhalation Q6H PRN (Reason: shortness of breath or wheezing) Qty: 30 0RF prednisone 50 mg tablet 50 mg PO DAILY 4 Days Qty: 4 0RF ondansetron 4 mg tablet,disintegrating 4 mg PO Q6-8H PRN (Reason: nausea and vomiting) Qty: 10 0RF albuterol sulfate [ProAir HFA] 90 mcg/actuation HFA aerosol inhaler 2 puff inhalation Q4-6H PRN (Reason: shortness of breath or wheezing) Qty: 8.5 0RF albuterol sulfate 2.5 mg /3 mL (0.083 %) solution for nebulization 2.5 mg inhalation Q4-6H PRN (Reason: shortness of breath or wheezing) Qty: 90 0RF benzonatate 200 mg capsule 200 mg PO TID PRN (Reason: cough) Qty: 30 0RF prednisone 20 mg tablet 40 mg PO DAILY Qty: 10 0RF prednisone 50 mg tablet 50 mg PO DAILY 4 Days Qty: 4 0RF benzonatate 200 mg capsule 200 mg PO TID PRN (Reason: cough) Qty: 20 0RF prednisone 20 mg tablet 40 mg PO DAILY Qty: 10 0RF benzonatate 100 mg capsule 100 mg PO BID PRN (Reason: cough) Qty: 20 0RF Cepacol Sore Throat (carolina-men) 15-2.6 mg lozenge 1 cesario mucous membrane Q2-4H PRN (Reason: sore throat) Qty: 16 0RF prednisone 20 mg tablet 40 mg PO DAILY 4 Days Qty: 8 0RF Discharge Date/Time: 07/16/24 00:47
[2024-07-15 22:27] LABS: Influenza A PCR NEGATIVE (Negative); Influenza B PCR NEGATIVE (Negative); Resp Syncy Virus RNA Qual PCR NEGATIVE (Negative); SARS COV2 PCR INHOUSE NEGATIVE (Negative)
--- NOTE | 2024-07-16 00:44 | PC.NURSE ---
pt came up to this rn in waiting room states feeling better does not want to stay this rn encouraged pt to stay to continue treatment pt refused to stay at this time left without completing treatment
== END 2024-07-16 00:47 | disposition left against medical advice (07) ==
PROVIDERS: Physician Assistant Medical; Emergency Provider Emergency Medicine Emergency Medical Services
DX: R05.9 Cough, unspecified (principal); J45.909 Unspecified asthma, uncomplicated; Z03.818 Encounter for observation for suspected exposure to other biological agents ruled out
CPT/HCPCS: 0241U; 71046; 99281; 99283

== ENCOUNTER → 2024-07-15 21:30 | Outpatient (BNV) | payer OTHER, SELFPAY | PROVIDERS: Visit Provider Radiology Diagnostic Radiology | DX: R06.02 Shortness of breath (principal) | CPT/HCPCS: 71046 ==

== ENCOUNTER 2024-12-05 15:36 | Emergency (ER) | payer OTHER, SELFPAY ==
--- NOTE | ~2024-12-05 | XR_ITS ---
CLINICAL HISTORY: cough, sob 2 view chest x-ray. Comparison: CR - XR CHEST 2V - 07/15/24 21:51 EST Findings: The lungs are adequately expanded. No focal consolidation. No effusion or pneumothorax. Cardiac and mediastinal contours are within normal limits. No acute osseous abnormality Impression: No acute process. This document has been electronically signed by: Jovan Ivy MD on 12/05/2024 16:43:00
[2024-12-05 15:54] VITALS: BP 132/77; PULSE 110; RESP 19; TEMP 37.1; O2SAT 98; BMI 30.1
--- NOTE | 2024-12-05 15:54 | ED.URI ---
HPI - URI/Sore Throat General Chief Complaint: General Medical Stated Complaint: flu like symptoms Time Seen by Provider: 12/05/24 17:21 Source: patient Mode of arrival: ambulatory Limitations: no limitations History of Present Illness ED Provider: vani granados np HPI Narrative: Patient is a 54-year-old female who presents emergency department for evaluation 3 days with myalgias, dry nonproductive cough, intermittent shortness of breath, diffuse anterior chest pain during episodes of coughing, chills but no reported fever. Reports her spouse was sick approximately 1 week ago but symptoms have resolved. Denies any recent travel. She has a history of asthma she has not felt as though she has needed to use her albuterol inhaler very much though when she has tried it has not helped her cough. She denies any headache, dizziness, neck pain, neck stiffness, sore throat, nausea, vomiting, abdominal pain, numbness or tingling of the extremities. Related Data Previous Rx's ?Medication ?Instructions ?Recorded albuterol sulfate 2.5 mg/0.5 mL 5 mg inhalation Q6H PRN shortness 10/26/20 solution for nebulization of breath or wheezing #30 ea benzonatate 100 mg capsule 100 mg PO TID PRN cough #14 caps 10/26/20 (Delmis Marshall) prednisone 50 mg tablet 50 mg PO DAILY #4 tabs 10/26/20 prednisone 50 mg tablet 50 mg PO DAILY 4 days #4 tabs 08/22/21 ondansetron 4 mg disintegrating 4 mg PO Q6-8H PRN nausea and 10/02/22 tablet vomiting #10 tabs albuterol sulfate 2.5 mg/3 mL 2.5 mg (3 mL) inhalation Q4-6H PRN 07/13/23 (0.083 %) solution for nebulization shortness of breath or wheezing #90 mL albuterol sulfate 90 mcg/actuation 2 puff inhalation Q4-6H PRN 07/13/23 aerosol inhaler (ProAir HFA) shortness of breath or wheezing #8.5 grams benzonatate 200 mg capsule 200 mg PO TID PRN cough #30 caps 07/13/23 prednisone 20 mg tablet 40 mg (2 x 20 mg) PO DAILY #10 tabs 07/13/23 prednisone 50 mg tablet 50 mg PO DAILY 4 days #4 tabs 11/05/23 benzonatate 200 mg capsule 200 mg PO TID PRN cough #20 caps 11/26/23 prednisone 20 mg tablet 40 mg (2 x 20 mg) PO DAILY #10 tabs 11/26/23 benzocaine 15 mg-menthol 2.6 mg 1 cesario mucous membrane Q2-4H PRN 04/21/24 lozenges (Cepacol Sore Throat sore throat #16 ea (benzocaine-menthol)) benzonatate 100 mg capsule 100 mg PO BID PRN cough #20 caps 04/21/24 prednisone 20 mg tablet 40 mg (2 x 20 mg) PO DAILY 4 days 04/21/24 #8 tabs prednisone 20 mg tablet 40 mg (2 x 20 mg) PO DAILY #10 tabs 12/05/24 Allergies Allergy/AdvReac Type Severity Reaction Status Date / Time chocolate Allergy Sneezing Verified 12/05/24 15:56 Review of Systems Review of Systems: Yes all other systems are reviewed and are negative [facility] Past Medical History Attestation statement: The following information was validated with the patient. Source: old records reviewed Medical History Hypothyroid Asthma Social History Social History Unable to assess alcohol history related to: Unknown Alcohol intake: never Use of substances other than those prescribed or required for medical reasons: Unknown Advance Directives: No Advance Directives Information Provided: No Do you have a plan to hurt others: No Plan Physical Exam Vital Signs: Vital Signs: Last Vital Signs Temp 98.4 F 12/05/24 18:34 Pulse 96 12/05/24 18:34 Resp 18 12/05/24 18:34 BP 138/88 12/05/24 18:34 Pulse Ox 98 12/05/24 18:34 O2 Del Method Room Air 12/05/24 18:34 BMI result Body Mass Index 30.1 Appearance: Alert.?Oriented to person, place and time. No acute distress.?Normal affect. Eyes: Pupils equal, round and reactive to light.? ENT: TM normal bilaterally. Pharynx normal.?? Neck: Normal inspection.? Neck supple.??No cervical adenopathy CVS: Heart sounds normal. Normal heart rate and rhythm.? Pulses normal.?? Respiratory: No respiratory distress.? Lung sounds clear to auscultation bilaterally?? Abdomen: Soft and non-tender. Normoactive bowel sounds. Skin: Skin warm and dry.? Normal skin color.? ? Extremities: No lower extremity edema.? Neuro: Moves all extremities spontaneously. Sensation intact bilaterally. No motor deficits. Ambulates with normal steady gait. Course Course Course Narrative: This is a Rapid Medical Exam performed in triage by Perlita Jackson PA-C. Full HPI, ROS and PE to be performed by primary ED provider. 54 yo F w/PMHx asthma presenting to the ED c/o myalgias, URI sx & dry cough x Fri w/assoc SOB & CP w/coughing. +chills. Denies fever, sick contacts/travel PE: talking in complete sentences, lungs CTA, tachycardic Plan: SARs, rapid strep, CXR Medical Decision Making Medical Decision Making MDM Narrative: Patient is a 54 old female with past medical history of asthma, hypothyroidism, presenting for evaluation of respiratory symptoms reproductive chest pain to palpation and cough as well as shortness of breath. COVID-19 testing is positive. Influenza/RSV testing is negative. Chest x-ray does not show consolidation or infiltrate to suggest pneumonia, no pleural effusions to suggest CHF and she has no history of this, clinically does not appear volume overloaded Well-appearing, nontoxic, afebrile, no tachypnea/hypoxia. She arrived tachycardic, pulse at the time of my evaluation is 90 on auscultation. Speaking clear full sentences, ambulatory with steady gait. Given her history of asthma, I will send a short course of prednisone to the pharmacy. Discussed conservative treatment including rest, hydration, Tylenol/ibuprofen as needed for fever and body aches, saline nasal spray, humidifier, [id number] cold medication. Advised to follow-up with primary care provider as needed, discussed reasons to return back to the emergency department. All questions were answered. Patient discharged home in stable condition. Differential Diagnosis Differential Diagnoses: The differential diagnosis associated with the presentation includes ( See narrative above) Admission/Observation Consideration of admission/observation: Escalation of care including admission/observation considered ( see narrative above) Lab Data [facility] Lab Attestation statement: I reviewed the patient's lab results. ( see narrative above) Labs: Lab Results 12/05/24 Range/Units 16:09 Influenza Type A (PCR) NEGATIVE (Negative) Influenza Type B (PCR) NEGATIVE (Negative) RSV RNA Qual (PCR) NEGATIVE (Negative) SARS-CoV-2 RNA (RT-PCR) POSITIVE A (Negative) S. pyogenes GrpA JANKI Negative (Negative) Independent Interpretation I performed an independent interpretation of an: EKG (Sinus tachycardia with ventricular rate of 104, normal BEN, QTC 454, no ST-elevation) and Plain X-Ray (See narrative above) Radiology Impression Discussion of test interpretation with radiology: I have reviewed the radiologist's reading. Radiologist Impression: 2 view chest x-ray. Comparison: CR - XR CHEST 2V - 07/15/24 21:51 EST Findings: The lungs are adequately expanded. No focal consolidation. No effusion or pneumothorax. Cardiac and mediastinal contours are within normal limits. No acute osseous abnormality Impression: No acute process. Independent Historian Clinical information obtained from an independent historian. History obtained from or confirmed by: Spouse External Record Review External record reviewed: Outpatient record Prescription Management I considered prescription management with: Pain Medication ( acetaminophen/ibuprofen) Chronic Conditions Patient?s care impacted by: Other (See narrative above) Discharge Plan Discharge Clinical Impression: COVID-19 Patient Disposition: Home, Self-Care Instructions: COVID-19 (Coronavirus Disease 2019) (ED) Additional Instructions: As discussed, your COVID test today was positive. I am sending a prescription for prednisone to your pharmacy, please take this course as prescribed. Be sure to rest, stay well hydrated drinking plenty of fluids, eat small frequent meals. Tylenol/ibuprofen can be used as needed for fever/pain. Yrsm-[id number] cold medications may be helpful as well for symptoms. Saline nasal spray, humidifier may be helpful for nasal congestion. You may return to the emergency department with any new or worsening symptoms or concerns. Follow-up with your primary care provider as needed. Should remain out of school/ work until symptoms have resolved and have been without a fever for 24 hours without the use of Tylenol or ibuprofen. Prescriptions: New prednisone 20 mg tablet 40 mg PO DAILY Qty: 10 0RF No Action benzonatate [Tessalon Perles] 100 mg capsule 100 mg PO TID PRN (Reason: cough) Qty: 14 0RF prednisone 50 mg tablet 50 mg PO DAILY Qty: 4 0RF albuterol sulfate 2.5 mg/0.5 mL solution for nebulization 5 mg inhalation Q6H PRN (Reason: shortness of breath or wheezing) Qty: 30 0RF prednisone 50 mg tablet 50 mg PO DAILY 4 Days Qty: 4 0RF ondansetron 4 mg tablet,disintegrating 4 mg PO Q6-8H PRN (Reason: nausea and vomiting) Qty: 10 0RF albuterol sulfate [ProAir HFA] 90 mcg/actuation HFA aerosol inhaler 2 puff inhalation Q4-6H PRN (Reason: shortness of breath or wheezing) Qty: 8.5 0RF albuterol sulfate 2.5 mg /3 mL (0.083 %) solution for nebulization 2.5 mg inhalation Q4-6H PRN (Reason: shortness of breath or wheezing) Qty: 90 0RF benzonatate 200 mg capsule 200 mg PO TID PRN (Reason: cough) Qty: 30 0RF prednisone 20 mg tablet 40 mg PO DAILY Qty: 10 0RF prednisone 50 mg tablet 50 mg PO DAILY 4 Days Qty: 4 0RF benzonatate 200 mg capsule 200 mg PO TID PRN (Reason: cough) Qty: 20 0RF prednisone 20 mg tablet 40 mg PO DAILY Qty: 10 0RF benzonatate 100 mg capsule 100 mg PO BID PRN (Reason: cough) Qty: 20 0RF Cepacol Sore Throat (carolina-men) 15-2.6 mg lozenge 1 cesario mucous membrane Q2-4H PRN (Reason: sore throat) Qty: 16 0RF prednisone 20 mg tablet 40 mg PO DAILY 4 Days Qty: 8 0RF Referrals: Physician,Unknown J [Primary Care Provider] - Interventions: ED Discharge Assessment Last Done: 12/05/24 19:08 Print Language: Korean
--- NOTE | 2024-12-05 15:56 | ECG_ITS ---
Test Reason : cp Blood Pressure : */* mmHG Vent. Rate : 104 BPM Atrial Rate : 104 BPM P-R Int : 132 ms QRS Dur : 84 ms QT Int : 346 ms P-R-T Axes : 51 14 32 degrees QTcB Int : 454 ms Sinus tachycardia Otherwise normal ECG When compared with ECG of 06-Sep-2021 16:34, No significant change was found Referred By: Perlita Jackson Electronically Signed By: CARLITOS LOREDO MD
[2024-12-05 16:22] LABS: IDNOW Serial# 55D5AD1C; Strep A Nucleic Acid Negative (Negative)
[2024-12-05 16:59] LABS: Influenza A PCR NEGATIVE (Negative); Influenza B PCR NEGATIVE (Negative); Resp Syncy Virus RNA Qual PCR NEGATIVE (Negative); SARS COV2 PCR INHOUSE POSITIVE (Negative)
[2024-12-05 17:50] VITALS: BP 144/81; PULSE 97; RESP 16; O2SAT 99
[2024-12-05 18:34] VITALS: BP 138/88; PULSE 96; RESP 18; TEMP 36.9; O2SAT 98
[2024-12-05 19:08] VITALS: BP 138/88; PULSE 96; RESP 18; TEMP 36.9; O2SAT 98
== END 2024-12-05 19:08 | disposition home or self-care (01) ==
PROVIDERS: Physician Assistant; Emergency Provider Emergency Medicine
DX: U07.1 COVID-19 (principal); R05.9 Cough, unspecified; R06.02 Shortness of breath; Z79.899 Other long term (current) drug therapy
CPT/HCPCS: 0241U; 71046; 87651; 93005; 99283; 99284

== ENCOUNTER → 2024-12-05 15:56 | Outpatient (BNV) | payer OTHER, SELFPAY | PROVIDERS: Visit Provider Radiology Vascular & Interventional Radiology | DX: R05.9 Cough, unspecified (principal) | CPT/HCPCS: 71046 ==

== ENCOUNTER → 2024-12-05 15:56 | Outpatient (BNV) | payer OTHER, SELFPAY | PROVIDERS: Emergency Provider Emergency Medicine; Visit Provider Internal Medicine Cardiovascular Disease | DX: R00.0 Tachycardia, unspecified (principal) | CPT/HCPCS: 93010 ==

== ENCOUNTER 2024-12-18 12:38 | Emergency (ER) | payer OTHER, SELFPAY ==
[2024-12-18 12:45] VITALS: BP 134/68; PULSE 108; RESP 16; TEMP 36.8; O2SAT 99; BMI 26.6
--- NOTE | 2024-12-18 12:46 | ED_ITS ---
HPI - Skin/Abscess/Foreign Bdy General Chief complaint: Skin/Abscess/Foreign Body Stated complaint: rash Source: patient and RN notes reviewed Mode of arrival: ambulatory Limitations: no limitations History of Present Illness ED Provider: Miri Silveira PA-C HPI narrative: This is a 54-year-old female, with a history of thyroid disease, and asthma, who presents emergency department with complaints of rash noted to bilateral arms and legs which started just prior to her arrival. She states that she took a shower with a new shampoo and conditioner and after she got out of the shower sh e noticed a rash developing. Denies any pain or itching associated with this rash. Denies history of similar symptoms. Denies any difficulty breathing, throat swelling, or shortness of breath. No chest pain. Denies taking any medications prior to arrival. No other complaints or concerns at this time. MD complaint: rash Onset (ago): minute(s) Relieving factors: none Exacerbating factors: none Associated symptoms: denies other symptoms Treatments prior to arrival: none Related Data Previous Rx's ?Medication ?Instructions ?Recorded albuterol sulfate 2.5 mg/0.5 mL 5 mg inhalation Q6H NE N shortness 10/26/20 solution for nebulization of breath or wheezing #30 ea benzonatate 100 mg capsule 100 mg PO TID PRN cough #14 caps 10/26/20 (Delmis Marshall) prednisone 50 mg tablet 50 mg PO DAILY #4 tabs 10/26 prednisone 50 mg tablet 50 mg PO DAILY 4 days #4 tab s 08/22/21 ondansetron 4 mg disintegrating 4 mg PO Q6-8H PRN naus ea and 10/02/22 tablet vomiting #10 tabs albuterol sulfate 2.5 mg/3 mL 2.5 mg (3 mL) inhalation Q4-6H PRN 07/13/23 (0.083 %) solution for nebulization shortness of breat h or wheezing #90 mL albuterol sulfate 90 mcg/actuation 2 puff inhalation Q 4-6H PRN 07/13/23 aerosol inhaler (ProAir HFA) shortness of breath or wh eezing #8.5 grams benzonatate 200 mg capsule 200 mg PO TID PRN cough #30 caps 07/13/23 prednisone 20 mg tablet 40 mg (2 x 20 mg) PO DAILY # 10 tabs 07/13/23 prednisone 50 mg tablet 50 mg PO DAILY 4 days #4 tab s 11/05/23 benzonatate 200 mg capsule 200 mg PO TID PRN cough #20 caps 11/26/23 prednisone 20 mg tablet 40 mg (2 x 20 mg) PO DAILY # 10 tabs 11/26/23 benzocaine 15 mg-menthol 2.6 mg 1 cesario mucous membrane Q2-4H PRN 04/21/24 lozenges (Cepacol Sore Throat sore throat #16 ea (benzocaine-menthol)) benzonatate 100 mg capsule 100 mg PO BID PRN cough #20 caps 04/21/24 prednisone 20 mg tablet 40 mg (2 x 20 mg) PO DAILY 4 days 04/21/24 #8 tabs prednisone 20 mg tablet 40 mg (2 x 20 mg) PO DAILY # 10 tabs 12/05/24 diphenhydramine HCl 25 mg tablet 25 - 50 mg (1 - 2 x 2 5 mg) PO 12/18/24 (Benadryl Allergy) Q6-8H PRN itching #30 tabs prednisone 20 mg tablet 40 mg (2 x 20 mg) PO DAILY # 4 tabs 12/18/24 Allergies Allergy/AdvReac Type Severity Reaction Status Date / Time chocolate Allergy Sneezing Verified 12/18/24 12:46 Review of Systems Review of Systems: Yes all other systems are reviewed and are negative Constitutional: Constitutional: Reports as per [facility] Past Medical History Medical History Hypothyroid Asthma Social History Social History Unable to assess alcohol history related to: Unknown Alcohol intake: never Advance Directives: No Advance Directives Information Provided: No Do you have a plan to hurt others: No Plan Physical Exam Vital Signs: Vital Signs: Last Vital Signs Temp 98.2 F 12/18/24 12:45 Pulse 108 H 12/18/24 12:45 Resp 16 12/18/24 12:45 BP 134/68 12/18/24 12:45 Pulse Ox 99 12/18/24 12:45 O2 Del Method Room Air 12/18/24 12:45 BMI result Body Mass Index 26.6 Const: General: cooperative, comfortable and no acute distress Orientation/consciousness: patient oriented x3 Limitations: no limitations HEENT: Other: Airway is widely patent. No stridor. Head: Yes normal to inspection, Yes normocephalic and Yes atraumatic Ears: hearing grossly normal bilaterally General nose exam: Normal external nose present Face and sinus: Yes normal facial exam Mouth: Normal oral and palatal mucosa present, oropharynx normal and moist mucous membranes Throat: Yes posterior oropharynx normal Eyes: General: appearance normal, both eyes and all related structures Eyelids: Yes eyelids normal Conjunctivae: conjunctivae normal Sclerae: sclerae normal Pupils: Equal, round and reactive pupils present EOM: EOMs intact bilaterally Neck: Neck: Yes normal visual inspection, Yes full ROM and Yes no lymphadenopathy Lymphatic: no lymphadenopathy noted Chest: Chest palpation & inspection: normal inspection of the chest Resp: Effort & Inspection: normal respiratory effort and able to speak in complete sentences Auscultation: clear to auscultation bilaterally, no crackles, no rales, no rhonchi and no wheezes Cardio: Rate: regular rate Rhythm: regular rhythm Heart sounds: S1 normal heart sound present and S2 normal heart sound present GI: Inspection: Yes normal to inspection Skin: Other: Patient with faint blanching maculopapular rash noted to bilateral arms overlying the axilla, as well as on bilateral shins. No itching or excoriations noted. No erythema. Neuro: General: patient oriented x3 and moves all extremities Cranial nerves: Yes Equal, round and reactive pupils present Extrem: General: Yes normal to inspection Right upper extremity: normal to inspection Left upper extremity: normal to inspection Right lower extremity: normal to inspection Left lower extremity: normal to inspection Medications Administered Discontinued Medications Generic Name Dose Route Start Last Admin Trade Name Freq PRN Reason Stop Dose Admin Prednisone 40 mg 12/18/24 12:53 12/18/24 12:57 Prednisone 20 Mg Tablet PO 12/18/24 12:54 40 mg ONCE ONE Administration Medical Decision Making Medical Decision Making [facility] Narrative: This is a 54-year-old female who presents emergency department with complaints of rash to bilateral arms and legs which started just prior to arrival. She used a new shampoo and conditioner during her shower this morning. On arrival, patient mildly tachycardic at 108 however she denies any difficulty breathing or airway compromise. Rash appears to be contact dermatitis, will treat with course of prednisone. She is given her 1st dose in the department today. We will also send over Benadryl to be used as needed. No evidence of anaphylaxis. She is feeling well other than this rash. Rashes not itching. No significant rash noted throughout torso. Given strict return precautions. She understands and agrees with plan. Patient stable for discharge Differential Diagnosis Differential Diagnoses: The differential diagnosis associated with the presentation includes Contact dermatitis, folliculitis, cellulitis, anaphylaxis-unlikely Admission/Observation Consideration of admission/observation: Escalation of care including admission/observation considered Discharge Plan Discharge Clinical Impression: Contact dermatitis Patient Disposition: Home, Self-Care Instructions: Contact Dermatitis (ED) Additional Instructions: You were seen in the ER due to a rash. Please discontinue the shampoo and conditioner that you used today as you may be allergic. Please take prescribed prednisone as directed. Finish the entire course. Take benadryl as needed for itching. If any new or worsening symptoms occur including but not limited to difficulty breathing, swallowing, swelling, please seek emergent care. Prescriptions: New prednisone 20 mg tablet 40 mg PO DAILY Qty: 4 0RF diphenhydramine HCl [Benadryl Allergy] 25 mg tablet 25 - 50 mg PO Q6-8H PRN (Reason: itching) Qty: 30 0RF No Action benzonatate [Tessalon Perles] 100 mg capsule 100 mg PO TID PRN (Reason: cough) Qty: 14 0RF prednisone 50 mg tablet 50 mg PO DAILY Qty: 4 0RF albuterol sulfate 2.5 mg/0.5 mL solution for nebulization 5 mg inhalation Q6H PRN (Reason: shortness of breath or wheezing) Qty: 30 0RF prednisone 50 mg tablet 50 mg PO DAILY 4 Days Qty: 4 0RF ondansetron 4 mg tablet,disintegrating 4 mg PO Q6-8H PRN (Reason: nausea and vomiting) Qty: 10 0RF albuterol sulfate [ProAir HFA] 90 mcg/actuation HFA aerosol inhaler 2 puff inhalation Q4-6H PRN (Reason: shortness of breath or wheezing) Qty: 8.5 0RF albuterol sulfate 2.5 mg /3 mL (0.083 %) solution for nebulization 2.5 mg inhalation Q4-6H PRN (Reason: shortness of breath or wheezing) Qty: 90 0RF benzonatate 200 mg capsule 200 mg PO TID PRN (Reason: cough) Qty: 30 0RF prednisone 20 mg tablet 40 mg PO DAILY Qty: 10 0RF prednisone 50 mg tablet 50 mg PO DAILY 4 Days Qty: 4 0RF benzonatate 200 mg capsule 200 mg PO TID PRN (Reason: cough) Qty: 20 0RF prednisone 20 mg tablet 40 mg PO DAILY Qty: 10 0RF benzonatate 100 mg capsule 100 mg PO BID PRN (Reason: cough) Qty: 20 0RF Cepacol Sore Throat (carolina-men) 15-2.6 mg lozenge 1 cesario mucous membrane Q2-4H PRN (Reason: sore throat) Qty: 16 0RF prednisone 20 mg tablet 40 mg PO DAILY 4 Days Qty: 8 0RF prednisone 20 mg tablet 40 mg PO DAILY Qty: 10 0RF Discharge Date/Time: 12/18/24 12:59 Print Language: Danish
[2024-12-18] MEDS: predniSONE 20 MG TABLET 40 MG PO (12:57)
== END 2024-12-18 12:59 | disposition home or self-care (01) ==
PROVIDERS: Emergency Provider Emergency Medicine
DX: L25.9 Unspecified contact dermatitis, unspecified cause (principal); R21 Rash and other nonspecific skin eruption; J45.909 Unspecified asthma, uncomplicated; E03.9 Hypothyroidism, unspecified; Z79.899 Other long term (current) drug therapy
CPT/HCPCS: 99281; 99283